=== PATIENT | male | born 1965 | race Caucasian/White ===

== ENCOUNTER 2016-06-20 08:11 | Emergency (ER) | payer OTHER ==
[~2016-06-20] VITALS: Ht 160 cm; Wt 60.0 kg
[~2016-06-20 08:11] MED LIST: ALBU18HF INHALATION; ASPI81TA3 PO; CIPR500T4 PO; COU2 PO; DICY20TA59 PO; DOCU100C26 PO; ENOX100D2 SC; GABA-526 PO; GEMF600T60 PO; HYDR-3498 PO; HYDR-902 PO; HYDR-906 PO; LEVO175T6 PO; NAPR-688 PO; NICO-524 TRANSDERM; OMEP40CA6 PO; OSLT75C PO
[2016-06-20 08:14] VITALS: Ht 160 cm; Wt 60.0 kg
[2016-06-20 09:16] LABS: INR 1.74; PROTIME 20.5 Sec (12.2-14.2); PT RATIO 1.6
[2016-06-20 09:17] LABS: PARTIAL THROMBOPLASTIN TIME 44.7 Sec (25.0-35.0)
--- NOTE | 2016-06-20 09:21 | RADRPT ---
PROCEDURE: US DVT. CLINICAL INDICATION: History of DVT TECHNIQUE: Multiple longitudinal and transverse images of the right lower extremity veins were obt ained with sher scale and color Doppler imaging. 2D grayscale measurements with compression, color Doppler flow, and augmentation was performed. COMPARISON: 07/13/2015 FINDINGS: Color and duplex Doppler ultrasound demonstrates nonocclusive deep venous thrombosis in the distal f emoral vein and occlusive deep venous thrombosis in the popliteal vein. There is no evidence of thr ombus in the common femoral vein. The deep venous thrombosis appears acute and increased compared t o previous study. IMPRESSION: Positive for acute deep venous thrombosis in right femoral and popliteal veins. A call report was joellen campo to <<Referring Physicians Name>> on <<DATETIME>>. RPTAT: HJES .Robert Cobian MD, MD Date Time Electronically viewed and signed by .Robert Cobian MD, MD on 06/20/2016 09:21 .S/
[2016-06-20] MEDS ORDERED: WARFARIN 2.5 MG TAB PO ONE (10:00)
[2016-06-20 10:21] VITALS: BP 102/60; PULSE 82; RESP 22; TEMP 98
--- NOTE | 2016-06-21 14:48 | ERD ---
ER Documentation Chief Complaint Date/Time DATE: 06/21/16 TIME: 14:46 Chief Complaint right lower leg pain hx dvt, wants ultrasound of leg HPI 50-year-old man recently released from residential here requesting ultrasound because he has a recent history of DVT to the right lower extremity. Patient states he uses warfarin as prescribed daily and just wants to be reevaluated. He denies any new symptoms, denies new or increased swelling, no chest pain or shortness of breath, no fevers or chills, no skin discoloration. ROS All systems reviewed and are negative except as per history of present illness. Medications Home Meds Active Scripts Ciprofloxacin Hcl* (Ciprofloxacin Hcl*) 500 Mg Tablet, 500 MG PO BID for 7 Days , TAB Prov:KELLEN PEÑA 04/08/16 Ciprofloxacin Hcl* (Ciprofloxacin Hcl*) 500 Mg Tablet, 500 MG PO BID, #14 TAB Prov:KELLEN PEÑA 04/08/16 Hydrocodone/Acetaminophen ([place] 10-325 Tablet) 1 Each Tablet, 1 EACH PO EVERY 6 HOURS, #30 TAB Prov:GREG CELESTE DO 12/12/15 Dicyclomine Hcl* (Bentyl*) 20 Mg Tablet, 20 MG PO QID, #30 TAB Prov:GREG CELESTE DO 12/12/15 Warfarin Sod (Coumadin) 2 Mg Tab, 5 MG PO DAILY@17, #20 TAB Prov:JIL THOMSON MD 07/13/15 Nicotine* (Nicoderm* Patch) 1 Patch Patch, 1 PATCH TRANSDERM DAILY, #10 PATCH 3 Refills Prov:JIL THOMSON MD 07/13/15 Enoxaparin Sodium (Enoxaparin Sodium) 100 Mg/Ml Soln, 90 MG SC Q12, #10 1 Refill Prov:JIL THOMSON MD 07/13/15 Hydrocodone Bit-Acetaminophen ([place]) 5-325 Mg Tablet, 1 TAB PO Q4H Y for PAIN, #14 TAB Prov:JOE SILVA DO 06/19/15 Naproxen* (Naproxen*) 500 Mg Tablet, 500 MG PO BID Y for PAIN, #20 TAB Prov:JOE SILVA DO 06/19/15 Omeprazole* (Omeprazole*) 40 Mg Capsule.dr, 40 MG PO DAILY, #30 CAP Prov:DEVON JOYNERFlex ETL ANALYST DEVELOPER 05/18/15 Hydrocodone Bit-Acetaminophen* ([place]*) 5-325 Mg Tab, 1 TAB PO Q6 Y for PAIN, # 15 TAB Prov:DEVON JOYNERFlex ETL ANALYST DEVELOPER 05/18/15 Oseltamivir Phosphate* (Tamiflu*) 75 Mg Capsule, 75 MG PO BID for 5 Days, CAP Prov:DEVON JOYNERFlex ETL ANALYST DEVELOPER 05/18/15 Reported Medications Albuterol Sulfate* (Ventolin HFA*) 18 Gm Hfa.aer.ad, 2 PUFF INHALATION Q6H, #1 INHALER 07/13/15 Aspirin (Aspirin) 81 Mg Chew, 81 MG PO DAILY, TAB.CHEW 07/13/15 Gabapentin* (Gabapentin*) 600 Mg Tablet, 600 MG PO TID, #90 TAB 07/13/15 Levothyroxine Sodium* (Levothyroxine Sodium*) 175 Mcg Tablet, 175 MCG PO DAILY, #30 TAB 07/13/15 Docusate Sodium* (Doc-Q-Lace*) 100 Mg Capsule, 100 MG PO BID Y for CONSTIPATION , CAP 07/13/15 Gemfibrozil* (Gemfibrozil*) 600 Mg Tablet, 600 MG PO BID, TAB 07/13/15 Allergies Allergies: Coded Allergies: No Known Allergy (Unverified , 12/11/15) PMhx/Soc No chronic pain, hypothyroidism, DVT, asthma History of Surgery: Yes (thyroidectomy 1993,tracheostomy, g-tube, cholecystectomy) Anesthesia Reaction: No Hx Neurological Disorder: Yes (spinal cord injury t1) Hx Respiratory Disorders: Yes (asthma) Hx Cardiac Disorders: Yes (HTN) Hx Psychiatric Problems: Yes (depression) Hx Miscellaneous Medical Probl: Yes (stomach ca, ) Hx Alcohol Use: Yes (beer, rum, 07/12/15) Hx Substance Use: No Hx Tobacco Use: Yes (one pack a day) Smoking Status: Former smoker FmHx Family History: No diabetes Physical Exam Vitals Vital Signs Date Time Temp Pulse Resp B/P Pulse Ox O2 Delivery O2 Flow Rate FiO2 06/20/16 10:21 98.0 82 22 102/60 100 06/20/16 08:14 98.3 85 22 109/63 100 Physical Exam GENERAL: Well-developed, well-nourished, well-hydrated, in no apparent distress , looks nontoxic in appearance HEENT: Moist mucous membranes, pink conjunctiva, no cervical spine tenderness or step-off deformities, no goiter, no jaundice or icterus, extraocular movements intact without pain. No submandibular induration, and no pharyngeal erythema NEURO: Alert and oriented 3, cranial nerves II through XII intact bilaterally, pupils equal round reactive to light, no focal deficits or facial asymmetry, sensation intact distally Strength 5/5 in upper and lower extremities bilaterally CARDIAC: Regular rate and rhythm, no murmurs rubs or gallops LUNGS: Clear bilaterally no wheezing crackles or stridor ABDOMEN: Soft nontender, no guarding, no rigidity, no rebound, no psoas sign no obturator sign. Normoactive bowel sounds SKIN: Warm and dry to touch, no abrasions, contusions, or hematomas, no lacerations, no ecchymosis, no target lesions, and without ulcers EXTREMITIES: No clubbing cyanosis or edema, calves are bilaterally symmetrical, no Homans sign, no popliteal cord sign. Distal pulses equal and bilateral PSYCH: Normal affect without agitation or irritability Results 24 hrs Laboratory Tests Test 06/20/16 08:47 Activated Partial Thromboplast Time 44.7Sec INR International Normalized Ratio 1.74 Prothrombin Time 20.5Sec Prothrombin Time Ratio 1.6 Current Medications Medications (Trade) Dose Ordered Sig/Alejandro Route PRN Reason Start Time Stop Time Status Last Admin Dose Admin Warfarin Sodium (Coumadin) 2.5 mg ONCE ONCE PO 06/20/16 10:00 06/20/16 10:01 DC 06/20/16 09:57 Procedures/MDM Color Doppler ultrasound of the right lower extremity revealed a DVT consistent with his history. INR was subtherapeutic at 1.7. I ordered 1 more dose of warfarin which he ingested here. I told him to follow-up with his PMD for continued INR checks and a prescription for an increased dose of warfarin. Patient feels much better at this time, and vital signs are normal, symptoms have improved. I did give strict instructions to return to the ED if symptoms continue or worsen, patient will otherwise follow-up with primary care physician. Patient understood instructions and agreed to plan. Departure Diagnosis: Primary Impression: DVT (deep venous thrombosis) DVT location: lower extremity Affected thrombotic vein of extremity: popliteal Laterality: right Chronicity: acute Qualified Code: I82.431 - Acute deep vein thrombosis (DVT) of popliteal vein of right lower extremity Condition: Good Patient Instructions: Deep Vein Thrombosis Referrals: ARMANDO PEGUERO MD, DAVID MD Jun 21, 2016 14:48
== END 2016-06-20 10:20 | disposition home or self-care (01) ==
LOC: E/R 08:11
DX: I82.431 Acute embolism and thrombosis of right popliteal vein (principal); E03.9 Hypothyroidism, unspecified; J45.909 Unspecified asthma, uncomplicated; I10 Essential (primary) hypertension; Z79.01 Long term (current) use of anticoagulants; Z79.82 Long term (current) use of aspirin; Z85.028 Personal history of other malignant neoplasm of stomach; Z87.891 Personal history of nicotine dependence
CPT/HCPCS: 85610; 85730; 93971

== ENCOUNTER 2016-07-07 15:40 | Emergency (ER) | payer OTHER ==
[~2016-07-07] VITALS: Wt 52.5 kg
[2016-07-07 20:34] VITALS: BP 109/76; PULSE 62; RESP 18
--- NOTE | 2016-07-07 21:25 | ERD ---
ER Documentation Chief Complaint Date/Time DATE: 07/07/16 TIME: 21:19 Chief Complaint g tube feeding malfunction since this morning. no trauma. HPI 50-year-old male with a history of gastric cancer status post gastrectomy with feeding tube placement at the beginning of this month presenting with malfunction of his feeding tube. He states that he woke up in the middle of the night and the port on his feeding tube had fallen off and it was leaking. He reconnected the port and tried to flush it and it would not flush. He disconnected the port and try to flush directly into the tube and it would not flush. He denies any abdominal pain, fevers, chills. ROS All systems reviewed and are negative except as per history of present illness. Medications Home Meds Active Scripts Ciprofloxacin Hcl* (Ciprofloxacin Hcl*) 500 Mg Tablet, 500 MG PO BID for 7 Days , TAB Prov:KELLEN PEÑA 04/08/16 Ciprofloxacin Hcl* (Ciprofloxacin Hcl*) 500 Mg Tablet, 500 MG PO BID, #14 TAB Prov:KELLEN PEÑA 04/08/16 Hydrocodone/Acetaminophen ([place] 10-325 Tablet) 1 Each Tablet, 1 EACH PO EVERY 6 HOURS, #30 TAB Prov:GREG CELESTE DO 12/12/15 Dicyclomine Hcl* (Bentyl*) 20 Mg Tablet, 20 MG PO QID, #30 TAB Prov:GREG CELESTE DO 12/12/15 Warfarin Sod (Coumadin) 2 Mg Tab, 5 MG PO DAILY@17, #20 TAB Prov:JIL THOMSON MD 07/13/15 Nicotine* (Nicoderm* Patch) 1 Patch Patch, 1 PATCH TRANSDERM DAILY, #10 PATCH 3 Refills Prov:JIL THOMSON MD 07/13/15 Enoxaparin Sodium (Enoxaparin Sodium) 100 Mg/Ml Soln, 90 MG SC Q12, #10 1 Refill Prov:JIL THOMSON MD 07/13/15 Hydrocodone Bit-Acetaminophen ([place]) 5-325 Mg Tablet, 1 TAB PO Q4H Y for PAIN, #14 TAB Prov:JOE SILVA DO 06/19/15 Naproxen* (Naproxen*) 500 Mg Tablet, 500 MG PO BID Y for PAIN, #20 TAB Prov:JOE SILVA DO 06/19/15 Omeprazole* (Omeprazole*) 40 Mg Capsule.dr, 40 MG PO DAILY, #30 CAP Prov:DEVON JOYNERFlex PRODUCTION TEAM ADVISOR 05/18/15 Hydrocodone Bit-Acetaminophen* ([place]*) 5-325 Mg Tab, 1 TAB PO Q6 Y for PAIN, # 15 TAB Prov:RIGOBERTO JOYNERMARKUS Kevin PRODUCTION TEAM ADVISOR 05/18/15 Oseltamivir Phosphate* (Tamiflu*) 75 Mg Capsule, 75 MG PO BID for 5 Days, CAP Prov:DEVON JOYNERFlex PRODUCTION TEAM ADVISOR 05/18/15 Reported Medications Albuterol Sulfate* (Ventolin HFA*) 18 Gm Hfa.aer.ad, 2 PUFF INHALATION Q6H, #1 INHALER 07/13/15 Aspirin (Aspirin) 81 Mg Chew, 81 MG PO DAILY, TAB.CHEW 07/13/15 Gabapentin* (Gabapentin*) 600 Mg Tablet, 600 MG PO TID, #90 TAB 07/13/15 Levothyroxine Sodium* (Levothyroxine Sodium*) 175 Mcg Tablet, 175 MCG PO DAILY, #30 TAB 07/13/15 Docusate Sodium* (Doc-Q-Lace*) 100 Mg Capsule, 100 MG PO BID Y for CONSTIPATION , CAP 07/13/15 Gemfibrozil* (Gemfibrozil*) 600 Mg Tablet, 600 MG PO BID, TAB 07/13/15 Allergies Allergies: Coded Allergies: No Known Allergy (Unverified , 12/11/15) PMhx/Soc History of Surgery: Yes (thyroidectomy 1993,tracheostomy, g-tube, cholecystectomy) Anesthesia Reaction: No Hx Neurological Disorder: Yes (spinal cord injury t1) Hx Respiratory Disorders: Yes (asthma) Hx Cardiac Disorders: Yes (HTN) Hx Psychiatric Problems: Yes (depression) Hx Miscellaneous Medical Probl: Yes (stomach ca, ) Hx Alcohol Use: Yes (beer, rum, 07/12/15) Hx Substance Use: No Hx Tobacco Use: No (one pack a day) Smoking Status: Former smoker FmHx Family History: No diabetes Physical Exam Vitals Vital Signs Date Time Temp Pulse Resp B/P Pulse Ox O2 Delivery O2 Flow Rate FiO2 07/07/16 20:34 62 18 109/76 97 Room Air 07/07/16 19:30 75 20 111/82 100 Room Air 07/07/16 15:49 98.2 88 21 90/54 100 Physical Exam Const: Chronically ill-appearing, nontoxic, no distress Head: Atraumatic Eyes: Normal Conjunctiva ENT: Normal External Ears, Nose and Mouth. Neck: Full range of motion..~ No meningismus. Tracheostomy present Resp: Clear to auscultation bilaterally Cardio: Regular rate and rhythm, no murmurs Abd: Soft, non tender, non distended. Well-healed surgical scar. Left lower quadrant with feeding tube in place. Normal bowel sounds Skin: No petechiae or rashes Back: No midline or flank tenderness Ext: No cyanosis, or edema Neur: Awake and alert Psych: Normal Mood and Affect Procedures/MDM Patient is presenting with malfunction of his feeding tube. It seems like his feeding tube is in the right place it just seems to be clogged. We tried to flush it and we were unsuccessful. After milking the tube, we tried to flush it again it would flush normally. Repeat abdominal exam was unremarkable the patient was discharged with return precautions. Departure Diagnosis: Primary Impression: Malfunction of gastrostomy tube Condition: Stable Patient Instructions: Flushing Your Feeding Tube Additional Instructions: Return to the ER for any other problems with your tube. MOHAN TAN MD Jul 07, 2016 21:25
== END 2016-07-07 20:34 | disposition home or self-care (01) ==
LOC: E/R 15:40
DX: K94.23 Gastrostomy malfunction (principal); I10 Essential (primary) hypertension; J45.909 Unspecified asthma, uncomplicated; Z79.01 Long term (current) use of anticoagulants; Z79.82 Long term (current) use of aspirin; Z85.028 Personal history of other malignant neoplasm of stomach; Z87.891 Personal history of nicotine dependence
CPT/HCPCS: 99282

== ENCOUNTER 2016-09-11 20:46 | Emergency (ER) | payer OTHER ==
[~2016-09-11] VITALS: Ht 167.6 cm; Wt 47.5 kg
[2016-09-11 20:52] VITALS: Ht 167.6 cm; Wt 47.5 kg
== END 2016-09-11 21:31 | disposition left against medical advice (07) ==
LOC: E/R 20:46
DX: Z53.21 Procedure and treatment not carried out due to patient leaving prior to being seen by health care provider (principal)

== ENCOUNTER 2016-10-18 20:00 | Inpatient (IN) | payer OTHER ==
[~2016-10-18] VITALS: Ht 167.6 cm; Wt 47.8 kg
[2016-10-18 22:15] LABS: ADD SCAN DIFF NO
[2016-10-18 22:18] LABS: BASOPHILS % 0.1 % (0.0-2.0); EOSINOPHILS % 0.5 % (0.0-7.0); HEMATOCRIT 30.3 % (42.0-52.0); HEMOGLOBIN 10.3 g/dl (14.0-18.0); LYMPHOCYTES # 1.2 10^3/ul (0.8-2.9); LYMPHOCYTES % 15.9 % (15.0-51.0); MEAN CORPUSCULAR VOLUME 88.3 fl (82.0-101.0); MEAN PLATELET VOLUME 9.9 fl (7.4-10.4); MONOCYTE # 0.4 10^3/ul (0.3-0.9); MONOCYTES % 4.8 % (0.0-11.0); NEUTROPHIL # 5.8 10^3/ul (1.6-7.5); NEUTROPHILS % 78.4 % (39.0-77.0); PLATELET COUNT 153 10^3/UL (140-415); RED BLOOD COUNT 3.43 10^6/ul (4.70-6.10); RED CELL DISTRIBUTION WIDTH 14.9 % (11.5-14.5); WHITE BLOOD COUNT 7.4 10^3/ul (4.8-10.8)
[2016-10-18 22:27] LABS: INR 1.88; PROTIME 21.8 Sec (12.2-14.2); PT RATIO 1.7
[2016-10-18 22:29] LABS: PARTIAL THROMBOPLASTIN TIME 64.9 Sec (25.0-35.0)
[2016-10-18 22:48] LABS: ALANINE AMINOTRANSFERASE 56 IU/L (13-69); ALKALINE PHOSPHATASE 50 IU/L (42-121); ANION GAP 9 (8-16); ASPARTATE AMINO TRANSFERASE 29 IU/L (15-46); BILIRUBIN,INDIRECT 0.2 mg/dl (0-1.1); BILIRUBIN,TOTAL 0.2 mg/dl (0.2-1.3); BLOOD UREA NITROGEN 18 mg/dl (7-20); CALCIUM 8.6 mg/dl (8.4-10.2); CARBON DIOXIDE 28 mmol/L (21-31); CHLORIDE 103 mmol/L (97-110); CREATININE 0.64 mg/dl (0.61-1.24); GLUCOSE 91 mg/dl (70-220); POTASSIUM 4.1 mmol/L (3.5-5.1); SODIUM 136 mmol/L (135-144); TOTAL PROTEIN 6.5 g/dl (6.1-8.1)
[2016-10-18 23:00] LABS: TROPONIN-I < 0.012 ng/ml (0.00-0.12)
[2016-10-18] MEDS ORDERED: CHOL400T10 PO (23:13)
[2016-10-18] MEDS ORDERED: CYAN500T46 PO (23:13)
[2016-10-18] MEDS ORDERED: CA C1TAB66 PO (23:13)
[2016-10-18] MEDS ORDERED: SENN-53 PO (23:14)
--- NOTE | 2016-10-18 23:14 | RADRPT ---
PROCEDURE: XR Chest. CLINICAL INDICATION: Possible sepsis. TECHNIQUE: Single frontal view of the chest. COMPARISON: 04/08/2016. FINDINGS: Tracheostomy tube at midline. Right central venous line in place with tip in the superior vena cava . The cardiomediastinal silhouette is within normal limits. Hyperinflated lungs with changes of centro lobular emphysema. The lungs otherwise clear. No signs of pleural fluid or pneumothorax are seen. T he osseous structures and soft tissues are unremarkable. IMPRESSION: No evidence for active cardiopulmonary disease. RPTAT: [facility]U Physician Lenore Date Time Electronically viewed and signed by Physician Lenore on 10/18/2016 23:13 RS/
--- NOTE | 2016-10-18 23:34 | RADRPT ---
PROCEDURE: CT abdomen and pelvis without intravenous contrast. CLINICAL INDICATION: Possible sepsis. TECHNIQUE: CT of the abdomen/pelvis was performed utilizing axial images with reconstructions in s agittal and coronal planes. The administered radiation dose is CTDI 6.8 mGy, DLP 309 mGy-cm. COMPARISON: 04/08/2016 FINDINGS: Visualized Chest: Some patchy airspace opacities are seen within the visualized left lower lobe. Th ere is a moderate-sized hiatal hernia. Abdomen: The examination is limited by a paucity of intra-abdominal fat contrast as well as a lack of oral an d intravenous contrast. The liver, spleen, pancreas, gallbladder,and adrenal glands are unremarkable. The kidneys are without hydronephrosis. No definite urinary calculi are seen. Prior bowel surgery is noted with anastomotic sutures in the left abdomen within some of the colon a nd likely small bowel loops. There is no evidence of bowel obstruction. The appendix is normal. N o intra-abdominal free air is seen. There is no evidence of intra-abdominal adenopathy or free fluid. Vascular calcifications are noted within the aorta and its branches. Pelvis: There is a small amount of pelvic free fluid. The urinary bladder and prostate are unremarkable. Osseous structures: Unremarkable. IMPRESSION: Small amount of pelvic free fluid which is nonspecific but abnormal in a male. Patchy airspace opacities in the visualized left lower lobe suggestive of pneumonia. Moderate size hiatal hernia. RPTAT: HIKT .Kerwin Wilkes MD, Date Time Electronically viewed and signed by .Kerwin Wilkes MD, on 10/18/2016 23:34 .T/
[2016-10-18 23:41] VITALS: TEMP 99.8
[2016-10-19] MEDS ORDERED: ACETAMINOPHEN 500 MG TAB ONE (00:36)
[2016-10-19] MEDS ORDERED: VANCOMYCIN 1 GM (PMX) 250 ML IVPB STA (01:26)
[2016-10-19] MEDS ORDERED: CEFEPIME 1GM/50 ML (PMX) 50 ML IVPB STA (01:26)
--- NOTE | 2016-10-19 01:55 | ERA ---
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 He has a history of stomach cancer with last chemotherapy 2 months ago. Denies any fevers or chills. Denies any nausea or vomiting. Denies any other current complaints. Denies any cough or runny nose. ROS All systems reviewed and are negative except as per history of present illness. Medications Home Meds Active Scripts Hydrocodone/Acetaminophen ([place] 10-325 Tablet) 1 Each Tablet, 1 EACH PO EVERY 6 HOURS, #30 TAB Prov:GREG CELESTE DO 12/12/15 Warfarin Sod (Coumadin) 2 Mg Tab, 5 MG PO DAILY@17, #20 TAB Prov:JIL THOMSON MD 07/13/15 Reported Medications Sennosides* (Senna Lax*) 8.6 Mg Tablet, 1 TAB PO DAILY, TAB 10/18/16 Ca Carb & Gluc/Mag Ox & Gluc (CALCIUM MAGNESIUM CAPLET) 1 Each Tablet, 1 EACH PO , TAB 10/18/16 Cholecalciferol* (Vitamin D*) 400 Unit Tablet, 800 UNIT PO DAILY, TAB 10/18/16 Cyanocobalamin* (Vitamin B12*) 500 Mcg Tab, 1000 MCG PO DAILY, TAB 10/18/16 Albuterol Sulfate* (Ventolin HFA*) 18 Gm Hfa.aer.ad, 2 PUFF INHALATION Q6H, #1 INHALER 07/13/15 Gabapentin* (Gabapentin*) 600 Mg Tablet, 600 MG PO TID, #90 TAB 07/13/15 Levothyroxine Sodium* (Levothyroxine Sodium*) 175 Mcg Tablet, 175 MCG PO DAILY, #30 TAB 07/13/15 Discontinued Reported Medications Aspirin (Aspirin) 81 Mg Chew, 81 MG PO DAILY, TAB.CHEW 07/13/15 Docusate Sodium* (Doc-Q-Lace*) 100 Mg Capsule, 100 MG PO BID Y for CONSTIPATION , CAP 07/13/15 Gemfibrozil* (Gemfibrozil*) 600 Mg Tablet, 600 MG PO BID, TAB 07/13/15 Discontinued Scripts Ciprofloxacin Hcl* (Ciprofloxacin Hcl*) 500 Mg Tablet, 500 MG PO BID for 7 Days , TAB Prov:KELLEN PEÑA 04/08/16 Ciprofloxacin Hcl* (Ciprofloxacin Hcl*) 500 Mg Tablet, 500 MG PO BID, #14 TAB Prov:KELLEN PEÑA 04/08/16 Dicyclomine Hcl* (Bentyl*) 20 Mg Tablet, 20 MG PO QID, #30 TAB Prov:GREG CELESTE DO 12/12/15 Nicotine* (Nicoderm* Patch) 1 Patch Patch, 1 PATCH TRANSDERM DAILY, #10 PATCH 3 Refills Prov:JIL THOMSON MD 07/13/15 Enoxaparin Sodium (Enoxaparin Sodium) 100 Mg/Ml Soln, 90 MG SC Q12, #10 1 Refill Prov:JIL THOMSON MD 07/13/15 Hydrocodone Bit-Acetaminophen ([place]) 5-325 Mg Tablet, 1 TAB PO Q4H Y for PAIN, #14 TAB Prov:JOE SILVA DO 06/19/15 Naproxen* (Naproxen*) 500 Mg Tablet, 500 MG PO BID Y for PAIN, #20 TAB Prov:JOE SILVA DO 06/19/15 Omeprazole* (Omeprazole*) 40 Mg Capsule.dr, 40 MG PO DAILY, #30 CAP Prov:DEVON JOYNER NP 05/18/15 Hydrocodone Bit-Acetaminophen* ([place]*) 5-325 Mg Tab, 1 TAB PO Q6 Y for PAIN, # 15 TAB Prov:DEVON JOYNER NP 05/18/15 Oseltamivir Phosphate* (Tamiflu*) 75 Mg Capsule, 75 MG PO BID for 5 Days, CAP Prov:DEVON JOYNER NP 05/18/15 Allergies Allergies: Coded Allergies: No Known Allergy (Unverified , 10/18/16) PMhx/Soc History of Surgery: Yes (tracheostomy, stomach surgery, gt removed) Anesthesia Reaction: No Hx Neurological Disorder: Yes (spinal cord injury t1) Hx Respiratory Disorders: Yes (asthma) Hx Cardiac Disorders: Yes (HTN) Hx Psychiatric Problems: Yes (depression) Hx Miscellaneous Medical Probl: Yes (stomach/thyroid ca, spinal cord injury t1 , dvt) Hx Alcohol Use: No Hx Substance Use: No Hx Tobacco Use: No (former) Smoking Status: Former smoker Physical Exam Vitals Vital Signs Date Time Temp Pulse Resp B/P Pulse Ox O2 Delivery O2 Flow Rate FiO2 10/18/16 23:41 99.8 71 16 103/70 98 Room Air 10/18/16 21:25 Nasal Cannula 10/18/16 20:32 99.6 98 18 128/58 98 Physical Exam Const: [] Head: Atraumatic Eyes: Normal Conjunctiva ENT: Normal External Ears, Nose and Mouth. Neck: Full range of motion..~ No meningismus. Resp: Clear to auscultation bilaterally Cardio: Regular rate and rhythm, no murmurs Abd: Soft, non tender, non distended. Normal bowel sounds Skin: No petechiae or rashes Back: No midline or flank tenderness Ext: No cyanosis, or edema Neur: Awake and alert Psych: Normal Mood and Affect Result Diagram: 10/18/16212410/18/162124 Results 24 hrs Laboratory Tests Test 10/18/16 21:25 10/19/16 00:08 White Blood Count 7.410^3/ul Red Blood Count 3.4310^6/ul Hemoglobin 10.3g/dl Hematocrit 30.3% Mean Corpuscular Volume 88.3fl Mean Corpuscular Hemoglobin 30.0pg Mean Corpuscular Hemoglobin Concent 34.0g/dl Red Cell Distribution Width 14.9% Platelet Count 81523^3/UL Mean Platelet Volume 9.9fl Neutrophils % 78.4% Lymphocytes % 15.9% Monocytes % 4.8% Eosinophils % 0.5% Basophils % 0.1% Nucleated Red Blood Cells % 0.0/100WBC Neutrophils # 5.810^3/ul Lymphocytes # 1.210^3/ul Monocytes # 0.410^3/ul Eosinophils # 0.010^3/ul Basophils # 0.010^3/ul Nucleated Red Blood Cells # 0.010^3/ul Prothrombin Time 21.8Sec Prothrombin Time Ratio 1.7 INR International Normalized Ratio 1.88 Activated Partial Thromboplast Time 64.9Sec Sodium Level 136mmol/L Potassium Level 4.1mmol/L Chloride Level 103mmol/L Carbon Dioxide Level 28mmol/L Anion Gap 9 Blood Urea Nitrogen 18mg/dl Creatinine 0.64mg/dl Glucose Level 91mg/dl Lactic Acid Level 1.4mmol/L < 0.5mmol/L Calcium Level 8.6mg/dl Total Bilirubin 0.2mg/dl Direct Bilirubin 0.00mg/dl Indirect Bilirubin 0.2mg/dl Aspartate Amino Transf (AST/SGOT) 29IU/L Alanine Aminotransferase (ALT/SGPT) 56IU/L Alkaline Phosphatase 50IU/L Troponin I < 0.012ng/ml Total Protein 6.5g/dl Albumin 4.0g/dl Globulin 2.50g/dl Albumin/Globulin Ratio 1.60 Current Medications Medications (Trade) Dose Ordered Sig/Alejandro Route PRN Reason Start Time Stop Time Status Last Admin Dose Admin Acetaminophen 500 mg 500 mg STK-MED ONCE .ROUTE 10/19/16 00:36 10/19/16 00:37 DC Cefepime HCl 50 ml @ 100 mls/hr ONCE STAT IVPB 10/19/16 01:26 10/19/16 01:55 Vancomycin HCl (Vancocin) 250 ml @ 125 mls/hr ONCE STAT IVPB 10/19/16 01:26 10/19/16 03:25 Procedures/MDM EKG: Rate/Rhythm: Normal Sinus Rhythm QRS, ST, T-waves: No changes consistent w/ acute ischemia Impression: No evidence of ischemia or arrhythmia Chest X-ray 1V Interpreted by me: Soft Tissue: No acute abnormalities Bones: No acute abnormalities Mediastinum/Cardiac Silhouette/Lungs: No acute abnormalities CT of the abdomen pelvis does show basilar pneumonia Blood cultures pending Medical decision-making: This 51 abdomen history of gastric cancer status post chemo with pneumonia. Started on broad-spectrum antibiotics post blood cultures. Patient will be admitted to hospitalist Departure Diagnosis: Primary Impression: Fever Qualified Code: R50.9 - Fever, unspecified fever cause Additional Impression: Pneumonia Qualified Code: J18.1 - Pneumonia of lower lobe due to infectious organism, unspecified laterality Condition: Serious SEAN BERNABE Oct 19, 2016 01:55
[2016-10-19 03:26] VITALS: BP 101/70; RESP 18
[2016-10-19 03:29] VITALS: Ht 167.6 cm; Wt 47.8 kg
[2016-10-19] MEDS ORDERED: ONDANSETRON 4 MG INJ IV PRN (03:30)
[2016-10-19] MEDS ORDERED: ZOLPIDEM 5 MG TAB PO PRN (03:30)
[2016-10-19] MEDS ORDERED: NACL 0.9% 3 ML SYG IV SCH (03:30)
[2016-10-19] MEDS ORDERED: morphine 2 MG INJ IV PRN (03:30)
[2016-10-19] MEDS: PANTOPRAZOLE 40 MG INJ IV SCH (05:29)
[2016-10-19] MEDS: SOD CHLORIDE 0.9% 1,000 ML IV SCH ×3 (05:43→20:40)
--- NOTE | 2016-10-19 06:41 | HP ---
Date/Time of Note Date/Time of Note DATE: 10/19/16 TIME: 06:34 Assessment/Plan VTE Prophylaxis VTE Prophylaxis Intervention: SCD's Lines/Catheters IV [facility]ter [facility] (from [facility]): yenni cath Assessment/Plan Chief Complaint/Hosp Course This is a 51-year-old male being admitted to the [facility] floor for: #1 community-acquired pneumonia: Patient denies any antibiotic use within the last 90 days and denies any hospitalizations in the last 90 days. She did receive Vanco and cefepime in the ED. Will start patient on Levaquin 750 mg IV daily. Tylenol for fevers. #2 Anemia: Likely secondary to anemia of chronic disease. We will continue to monitor and consider or iron studies the right now the MCV is within normal values. #3 gastric cancer: Patient last had chemotherapy approximately 2 months ago, follow-up outpatient hematology #4 thyroid cancer: Follow-up outpatient hematology #5 Hypothyroidism: Secondary to #4. Check TSH continue home levothyroxine dose. #6 right lower extremity DVT: Will check INR daily and provide Coumadin dosing as indicated while watching out for possible supratherapeutic levels being that he is currently going to be on antibiotics. #7 DVT and GI prophylaxis: SCDs, Protonix Further treatment strategy as per the clinical course Problems: HPI/ROS Admit Date/Time Admit Date/Time Oct 19, 2016 at 01:28 Hx of Present Illness Chief complaint: Fevers and feeling weak This is a 51-year-old male comes in with fever for 1 hour. He has a history of stomach cancer with last chemotherapy 2 months ago. Denies any fevers or chills. Denies any nausea or vomiting. He does state that he felt weak earlier. He had gone to the pool filled out for his kids but did not swim. After that he states that he just felt really tired and was sleeping the whole time. Denies any cough. Allergies: NKDA Medications: See SOFIA RUBI Const: As per HPI Eyes : No pain discharge or redness or change in visual acuity ENT: No pain, sore throat, congestion, congestion, dysphagia or discharge Respiratory: No shortness of breath, cough, sputum, wheezing, or pleuritic pain Cardiovascular: No chest pain, palpitation, PND, or edema GI : no change in appetite, abdominal pain, nausea, vomiting, diarrhea, constipation, or change in the color his stool Genitourinary: No dysuria, hematuria, flank pain , discharge or CVA tenderness Musculoskeletal: No joint pain, back pain, neck pain, restricted range of motion in neck or joints Skin: No rash, bruising or hives Neuro: No headache, dizziness, syncope, seizure, focal weakness Endocrine: No polyuria, polydipsia, temperature intolerance Psych: No hallucination, depression, anxiety or suicidal ideation PMH/Family/Social Past Medical History Gastric cancer, thyroid cancer, right lower extremity DVT Past Surgical History Gastrectomy Family History Significant Family History: cancer (Pancreatic CA: That) Social History Alcohol Use: none Smoking Status: Former smoker Drug Use: none Exam/Review of Systems Vital Signs Vitals Vital Signs Date Time Temp Pulse Resp B/P Pulse Ox O2 Delivery O2 Flow Rate FiO2 10/19/16 03:26 98.0 75 18 101/70 99 10/19/16 02:43 Room Air Intake and Output 10/18/16 10/18/16 10/19/16 14:59 22:59 06:59 Intake Total 300 ml Balance 300 ml Exam Exam General: Patient is well-developed male lying in bed comfortably in no acute distress. HEENT: Atraumatic, normocephalic. The pupils are equal, round and reactive. Extraocular motor are intact Neck: Supple with full range of motion. No rigidity or meningismus Chest: Nontender Lungs: Decreased breath sounds at the left lower lung lopez, mild coarse breath sounds left lower lung field. Heart: Normal S1-S2, Regular rhythm and rate. No overt murmurs appreciated Abdomen: Soft , nontender, nondistended , bowel sounds are present. No guarding no rebound tenderness , No masses or organomegaly. No costovertebral temporal angle mass Extremities: Normal to inspection, no edema no cyanosis Neurologic: Normal mental status, speech normal, cranial nerves II through XII are intact, motor and sensory are intact, no focal weakness Additional Comments PROCEDURE: CT abdomen and pelvis without intravenous contrast. CLINICAL INDICATION: Possible sepsis. TECHNIQUE: CT of the abdomen/pelvis was performed utilizing axial images with reconstructions in sagittal and coronal planes. The administered radiation dose is CTDI 6.8 mGy, DLP 309 mGy-cm. COMPARISON: 04/08/2016 FINDINGS: Visualized Chest: Some patchy airspace opacities are seen within the visualized left lower lobe. There is a moderate-sized hiatal hernia. Abdomen: The examination is limited by a paucity of intra-abdominal fat contrast as well as a lack of oral and intravenous contrast. The liver, spleen, pancreas, gallbladder,and adrenal glands are unremarkable. The kidneys are without hydronephrosis. No definite urinary calculi are seen. Prior bowel surgery is noted with anastomotic sutures in the left abdomen within some of the colon and likely small bowel loops. There is no evidence of bowel obstruction. The appendix is normal. No intra-abdominal free air is seen. There is no evidence of intra-abdominal adenopathy or free fluid. Vascular calcifications are noted within the aorta and its branches. Pelvis: There is a small amount of pelvic free fluid. The urinary bladder and prostate are unremarkable. Osseous structures: Unremarkable. IMPRESSION: Small amount of pelvic free fluid which is nonspecific but abnormal in a male. Patchy airspace opacities in the visualized left lower lobe suggestive of pneumonia. Moderate size hiatal hernia. RPTAT: HIKT .Kerwin Wilkes MD, MD Date Time Electronically viewed and signed by .Kerwin Wilkes MD, MD on 10/18/2016 23:34 PROCEDURE: XR Chest. CLINICAL INDICATION: Possible sepsis. TECHNIQUE: Single frontal view of the chest. COMPARISON: 04/08/2016. FINDINGS: Tracheostomy tube at midline. Right central venous line in place with tip in the superior vena cava. The cardiomediastinal silhouette is within normal limits. Hyperinflated lungs with changes of centrolobular emphysema. The lungs otherwise clear. No signs of pleural fluid or pneumothorax are seen. The osseous structures and soft tissues are unremarkable. IMPRESSION: No evidence for active cardiopulmonary disease. RPTAT: [facility]U Physician Lenore Date Time Electronically viewed and signed by Physician Lenore on 10/18/2016 23:13 Labs Result Diagram: 10/18/16212410/18/162124 Medications Medications Current Medications Ondansetron HCl (Zofran Inj) 4 mg Q6H PRN IV NAUSEA AND/OR VOMITING; Start 02/25 at 03:30 Acetaminophen (Tylenol Tab) 650 mg Q6H PRN PO PAIN LEVEL 1-3 OR FEVER; Start at 03:30 Morphine Sulfate (morphine) 2 mg Q4H PRN IV PAIN LEVEL 7-10; Start 10/19/16 at 03:30 Zolpidem Tartrate (Ambien) 5 mg QHS PRN PO INSOMNIA; Start 10/19/16 at 03:30 Pantoprazole 40 mg 40 mg DAILY@06 IV Last administered on 10/19/16 05:29; Admin Dose 40 MG; Start 10/19/16 at 06:00 Sodium Chloride (NS) 1,000 ml @ 75 mls/hr [id number] IV Last administered on 10/19 05:43; Admin Dose 75 MLS/HR; Start 10/19/16 at 05:30 ESAU PATRICIA Oct 19, 2016 06:40
[2016-10-19] MEDS ORDERED: PROVENTIL HFA 6.7GM INHALER INH SCH (07:00)
[2016-10-19] MEDS: SENNA TAB PO SCH (08:08)
[2016-10-19] MEDS: LEVOTHYROXINE 175 MCG TAB PO SCH (08:08)
[2016-10-19] MEDS: CYANOCOBALAMIN 500 MCG TAB PO SCH (08:08)
[2016-10-19] MEDS: CHOLECALCIFEROL 400 UNITS TAB PO SCH (08:08)
[2016-10-19] MEDS: LEVOFLOXACIN 750MG/D5W (PMX) 150 ML IVPB SCH (08:09)
[2016-10-19] MEDS: GABAPENTIN 300 MG CAP PO SCH ×3 (08:09→20:39)
[2016-10-19 09:04] VITALS: BP 123/80; RESP 16
[2016-10-19] MEDS ORDERED: ALBUTEROL 18 GM INHALER INH SCH (12:00)
[2016-10-19 15:25] VITALS: BP 116/71; RESP 18
[2016-10-19] MEDS ORDERED: ALBUTEROL/IPRATROPIUM (NEB) 3 ML AMP HHN PRN (15:30)
[2016-10-19] MEDS ORDERED: WARFARIN 2 MG TAB PO SCH (17:00)
[2016-10-19] MEDS: WARFARIN 5 MG TAB PO SCH (17:45)
[2016-10-19] MEDS: ALBUTEROL/IPRATROPIUM (NEB) 3 ML AMP HHN SCH (20:10)
[2016-10-19] MEDS: ACETAMINOPHEN 325 MG TAB PO PRN (20:39)
[2016-10-19 20:48] VITALS: BP 125/82; RESP 19
[2016-10-19] MEDS ORDERED: VANCOMYCIN IV PER PHARMACY XX SCH (21:00)
[2016-10-19 21:45] LABS: ADD UMIC NO; UR ASCORBIC ACID NEGATIVE (NEGATIVE); UR BILIRUBIN (Dip) NEGATIVE (NEGATIVE); UR BLOOD (Dip) NEGATIVE (NEGATIVE); UR CLARITY CLEAR (CLEAR); UR COLOR STRAW (YELLOW); UR GLUCOSE (Dip) NEGATIVE (NEGATIVE); UR KETONES (Dip) NEGATIVE (NEGATIVE); UR LEUKOCYTE ESTERASE (Dip) NEGATIVE Leu/ul (NEGATIVE); UR NITRITE (Dip) NEGATIVE (NEGATIVE); UR SPECIFIC GRAVITY (Dip) 1.013 (1.003-1.030); UR TOTAL PROTEIN (Dip) NEGATIVE (NEGATIVE); UR UROBILINOGEN (Dip) NEGATIVE (NEGATIVE)
[2016-10-19] MEDS: PIPER-TAZO 3.375 GM IV (PMX) 100 ML IVPB SCH (22:40)
[2016-10-20] MEDS ORDERED: VANCOMYCIN 1 GM in NS 250 ML IVPB ONE
[2016-10-20] MEDS: PIPER-TAZO 3.375 GM IV (PMX) 100 ML IVPB SCH ×3 (02:00→12:54)
[2016-10-20 02:03] VITALS: BP 128/69; RESP 17
[2016-10-20] MEDS: ACETAMINOPHEN 325 MG TAB PO PRN ×2 (03:04→09:11)
[2016-10-20] MEDS: PANTOPRAZOLE 40 MG INJ IV SCH (04:43)
[2016-10-20] MEDS: LEVOFLOXACIN 750MG/D5W (PMX) 150 ML IVPB SCH (04:43)
[2016-10-20 05:07] LABS: ADD SCAN DIFF NO
[2016-10-20 05:26] LABS: BASOPHILS % 0.1 % (0.0-2.0); EOSINOPHILS % 0.1 % (0.0-7.0); HEMATOCRIT 32.4 % (42.0-52.0); HEMOGLOBIN 10.9 g/dl (14.0-18.0); LYMPHOCYTES # 1.1 10^3/ul (0.8-2.9); LYMPHOCYTES % 13.3 % (15.0-51.0); MEAN CORPUSCULAR HEMOGLOBIN 29.1 pg (29.0-33.0); MEAN CORPUSCULAR HGB CONC 33.6 g/dl (32.0-37.0); MEAN CORPUSCULAR VOLUME 86.4 fl (82.0-101.0); MEAN PLATELET VOLUME 9.7 fl (7.4-10.4); MONOCYTE # 0.4 10^3/ul (0.3-0.9); MONOCYTES % 5.1 % (0.0-11.0); NEUTROPHIL # 6.5 10^3/ul (1.6-7.5); NEUTROPHILS % 80.9 % (39.0-77.0); PLATELET COUNT 139 10^3/UL (140-415); RED BLOOD COUNT 3.75 10^6/ul (4.70-6.10); RED CELL DISTRIBUTION WIDTH 14.5 % (11.5-14.5); WHITE BLOOD COUNT 8.1 10^3/ul (4.8-10.8)
[2016-10-20 05:35] LABS: INR 1.8; PT RATIO 1.6
[2016-10-20 05:42] LABS: ALBUMIN 3.7 g/dl (3.3-4.9); ALBUMIN/GLOBULIN RATIO 1.42; BILIRUBIN,INDIRECT 0.5 mg/dl (0-1.1); BILIRUBIN,TOTAL 0.5 mg/dl (0.2-1.3); CALCIUM 8.7 mg/dl (8.4-10.2); CREATININE 0.67 mg/dl (0.61-1.24); POTASSIUM 3.7 mmol/L (3.5-5.1); TOTAL PROTEIN 6.3 g/dl (6.1-8.1)
[2016-10-20 05:48] LABS: CHOL/HDL RATIO 1.6 RATIO; MAGNESIUM 1.6 mg/dl (1.7-2.5); PHOSPHORUS 4.5 mg/dl (2.5-4.9)
[2016-10-20] MEDS: ALBUTEROL/IPRATROPIUM (NEB) 3 ML AMP HHN SCH ×3 (07:29→19:36)
[2016-10-20] MEDS ORDERED: VANCOMYCIN 750 MG in SOD CHLORIDE 0.9% 150 ML IVPB SCH (08:00)
[2016-10-20] MEDS: CHOLECALCIFEROL 400 UNITS TAB PO SCH (08:04)
[2016-10-20] MEDS: SENNA TAB PO SCH (08:04)
[2016-10-20] MEDS: LEVOTHYROXINE 175 MCG TAB PO SCH (08:04)
[2016-10-20 08:05] VITALS: BP 127/70; RESP 16
[2016-10-20] MEDS: CYANOCOBALAMIN 500 MCG TAB PO SCH (08:05)
[2016-10-20] MEDS: GABAPENTIN 300 MG CAP PO SCH ×3 (08:05→20:23)
[2016-10-20] MEDS ORDERED: VANCOMYCIN 1 GM in NS 250 ML IVPB SCH ×2 (09:00→12:30)
--- NOTE | 2016-10-20 09:16 | CONS ---
Date/Time of Note Date/Time of Note DATE: 10/20/16 TIME: 09:11 Assessment/Plan Assessment/Plan Chief Complaint/Hosp Course 51 yo with metastatic gastric cancer currently off chemotherapy given his weight loss and infection -cont IV antibiotics for pneumonia -once patient is strong enough and is clear of infection he can restart chemotherapy if his primary oncologist agrees -will defer this decision to Dr. spring Problems: Consultation Date/Type/Reason Admit Date/Time Oct 19, 2016 at 01:28 Date of Consultation: Oct 21, 2016 Type of Consultation: oncology Reason for Consultation gastric cancer Referring Provider: ELISA JORDAN [employer]ER Hx of Present Illness (pt's oncologic history was obtained by primary oncologist, Dr. Spring). 51 yo male with a history of gastric cancer dx late 2015. Pt went on the receive 6 cycles of neoadjuvant Folfox and proceeded with partial gastrectomy. Unfortunately during the surgery pt was noted to have peritoneal carcinomatosis. He went on to receive 2 doses of adjuvant Folfox but due to side effects patient decided not to continue with treatment. His last chemotherapy was given approximately 2 months ago. He now presents with fevers. A CXR was done which did demonstrate evidence of left lower lobe pneumonia. Pt is now on antibiotics. Social History Alcohol Use: none Smoking Status: Former smoker Drug Use: none Exam/Review of Systems Vital Signs Vitals Vital Signs Date Time Temp Pulse Resp B/P Pulse Ox O2 Delivery O2 Flow Rate FiO2 10/20/16 07:30 70 18 96 21 10/20/16 04:51 98.9 10/20/16 02:03 128/69 10/19/16 02:43 Room Air Intake and Output 10/19/16 10/19/16 10/20/16 15:00 23:00 07:00 Intake Total 150 ml 1510 ml 1450 ml Output Total 800 ml Balance 150 ml 1510 ml 650 ml Exam Constitutional: alert, oriented Psych: nl mood/affect, no complaints Head: normocephalic Eyes: nl conjunctiva ENMT: nl external ears & nose, nl lips & teeth Neck: non-tender, supple Respiratory: clear to auscultation, normal air movement Cardiovascular: regular rate and rhythm Gastrointestinal: soft Musculoskeletal: nl extremities to inspection, nl gait and stance Extremities: normal pulses Neurological: LEATHER ETCHER II-XII intact Results Result Diagram: 10/20/1645410/20/16454 Results 24 hrs Laboratory Tests Test 10/19/16 20:00 10/20/16 04:55 10/20/16 04:57 Urine Color STRAW Urine Clarity CLEAR Urine pH 6.0 Urine Specific [place] 1.013 Urine Ketones NEGATIVE Urine Nitrite NEGATIVE Urine Bilirubin NEGATIVE Urine Urobilinogen NEGATIVE Urine Leukocyte Esterase NEGATIVE Urine Hemoglobin NEGATIVE Urine Glucose NEGATIVE Urine Total Protein NEGATIVE White Blood Count 8.1 Red Blood Count 3.75 L Hemoglobin 10.9 L Hematocrit 32.4 L Mean Corpuscular Volume 86.4 Mean Corpuscular Hemoglobin 29.1 Mean Corpuscular Hemoglobin Concent 33.6 Red Cell Distribution Width 14.5 Platelet Count 139 L Mean Platelet Volume 9.7 Neutrophils % 80.9 H Lymphocytes % 13.3 L Monocytes % 5.1 Eosinophils % 0.1 Basophils % 0.1 Nucleated Red Blood Cells % 0.0 Neutrophils # 6.5 Lymphocytes # 1.1 Monocytes # 0.4 Eosinophils # 0.0 Basophils # 0.0 Nucleated Red Blood Cells # 0.0 Sodium Level 135 Potassium Level 3.7 Chloride Level 102 Carbon Dioxide Level 26 Anion Gap 11 Blood Urea Nitrogen 13 Creatinine 0.67 Glucose Level 104 Hemoglobin A1c 5.4 Calcium Level 8.7 Total Bilirubin 0.5 Direct Bilirubin 0.00 Indirect Bilirubin 0.5 Aspartate Amino Transf (AST/SGOT) 16 Alanine Aminotransferase (ALT/SGPT) 44 Alkaline Phosphatase 53 Total Protein 6.3 Albumin 3.7 Globulin 2.60 Albumin/Globulin Ratio 1.42 Prothrombin Time 21.0 H Prothrombin Time Ratio 1.6 INR International Normalized Ratio 1.80 Phosphorus Level 4.5 Magnesium Level 1.6 L Triglycerides Level 116 Cholesterol Level 122 LDL Cholesterol, Calculated 26 HDL Cholesterol 73 H Cholesterol/HDL Ratio 1.6 Medications Medications Current Medications Ondansetron HCl (Zofran Inj) 4 mg Q6H PRN IV NAUSEA AND/OR VOMITING; Start 02/25 at 03:30 Acetaminophen (Tylenol Tab) 650 mg Q6H PRN PO PAIN LEVEL 1-3 OR FEVER Last administered on 10/20/16t 03:04; Admin Dose 650 MG; Start 10/19/16 at 03:30 Morphine Sulfate (morphine) 2 mg Q4H PRN IV PAIN LEVEL 7-10; Start 10/19/16 at 03:30 Zolpidem Tartrate (Ambien) 5 mg QHS PRN PO INSOMNIA; Start 10/19/16 at 03:30 Pantoprazole 40 mg 40 mg DAILY@06 IV Last administered on 10/20/16 04:43; Admin Dose 40 MG; Start 10/19/16 at 06:00 Sodium Chloride 1,000 ml @ 75 mls/hr [id number] IV Last administered on 20:40; Admin Dose 75 MLS/HR; Start 10/19/16 at 05:30 Levofloxacin/ Dextrose (Levaquin 750 Mg/ D5W 150 ml (Pmx)) 150 ml @ 100 mls/hr Q24H IVPB Last administered on 10/20/16 04:43; Admin Dose 100 MLS/HR; Start at 07:00 Cholecalciferol (Vitamin D) 800 units DAILY PO Last administered on 10/20/16 08:04; Admin Dose 800 UNITS; Start 10/19/16 at 09:00 Cyanocobalamin (Vitamin B12) 1,000 mcg DAILY PO Last administered on 10/20/16 08:05; Admin Dose 1,000 MCG; Start 10/19/16 at 09:00 Gabapentin (Neurontin) 600 mg TID PO Last administered on 10/20/16 08:05; Admin Dose 600 MG; Start 10/19/16 at 09:00 Senna (Senokot) 1 tab DAILY PO Last administered on 10/20/16 08:04; Admin Dose 1 TAB; Start 10/19/16 at 09:00 Warfarin Sodium 5 mg 5 mg DAILY@17 PO Last administered on 10/19/16 17:45; Admin Dose 5 MG; Start 10/19/16 at 17:00 Piperacillin Sod/ Tazobactam Sod 100 ml @ 200 mls/hr Q6 IVPB Last administered on 10/20/16 04:43; Admin Dose 200 MLS/HR; Start 10/19/16 at 21:30 Vancomycin HCl (Vancocin) 250 ml @ 125 mls/hr Q12H IVPB ; Start 10/20/16 at 12: 30 Miscellaneous Information (*Rx Drug Level Order Reminder*) VANCOMYCIN TROUGH AT 1130 ONCE ONCE XX ; Start 10/21/16 at 11:30; Stop 10/21/16 at 11:31 ADELSO SAMANIEGO M.D. Oct 20, 2016 09:15
--- NOTE | 2016-10-20 11:42 | PN ---
Date/Time of Note Date/Time of Note DATE: 10/20/16 TIME: 11:41 Assessment/Plan VTE Prophylaxis VTE Prophylaxis Intervention: other (Warfarin) Lines/Catheters IV [facility] PORT A CATH Assessment/Plan Chief Complaint/Hosp Course 1. Sepsis with underlying community-acquired pneumonia. No evidence of septic shock. Continue antibiotics. Cultures negative. 2. Community acquired pneumonia. Continue antibiotics. Continue inhaled bronchodilators. 3. Gastric cancer diagnosed in October 2015. Status post partial gastrectomy. Patient undergoing chemotherapy as outpatient because of peritoneal carcinomatosis. The patient being followed by oncology. 4. Normocytic, normochromic anemia. Most probably anemia of chronic disease. Monitor H&H closely. Obtain iron panel. 5. Hypothyroidism. Continue Synthroid. 6. Right lower extremity DVT. Patient on Coumadin. INR subtherapeutic. 7. Fluids, electrolytes, and nutrition. Regular diet. 8. DVT prophylaxis. On therapeutic anticoagulation. 9. Gastrointestinal prophylaxis. Proton pump inhibitors. 10. Plan. Continue antimicrobials. Await clinical improvement. Case discussed with Dr. Reyes. Problems: Subjective 24 Hr Interval Summary Free Text/Dictation The patient was febrile overnight. Exam/Review of Systems Vital Signs Vitals Vital Signs Date Time Temp Pulse Resp B/P Pulse Ox O2 Delivery O2 Flow Rate FiO2 10/20/16 08:05 98.4 100 16 127/70 99 10/20/16 07:30 21 10/19/16 02:43 Room Air Intake and Output 10/19/16 10/19/16 10/20/16 15:00 23:00 07:00 Intake Total 150 ml 1510 ml 1450 ml Output Total 800 ml Balance 150 ml 1510 ml 650 ml Exam General: Adequately build 51 year-old male lying in bed in no apparent distress. HEENT: Normocephalic, atraumatic. Eyes: Anicteric sclerae, conjunctivae clear. ENT: Nasal septum midline, oral mucosa moist. Neck supple, no JVD noticed. Respiratory: Bilaterally diminished breath sounds. No use of accessory muscles of respiration. Bilateral rhonchi. Cardiovascular: S1, S2 heard. No murmurs or gallops. Abdomen: Soft, nontender, and nondistended. Bowel sounds positive in all 4 quadrants. Genitourinary: Deferred. Extremities: No cyanosis, no clubbing, no edema. Peripheral pulses palpable. Neurologic: Cranial nerves II through XII grossly intact. The patient is awake, alert, and oriented. Skin: Normal skin turgor. No skin rashes. Results Result Diagram: 10/20/16 0455 10/20/16 0455 Results 24 hrs Laboratory Tests Test 10/19/16 20:00 10/20/16 04:55 10/20/16 04:57 Urine Color STRAW Urine Clarity CLEAR Urine pH 6.0 Urine Specific [place] 1.013 Urine Ketones NEGATIVE Urine Nitrite NEGATIVE Urine Bilirubin NEGATIVE Urine Urobilinogen NEGATIVE Urine Leukocyte Esterase NEGATIVE Urine Hemoglobin NEGATIVE Urine Glucose NEGATIVE Urine Total Protein NEGATIVE White Blood Count 8.1 Red Blood Count 3.75 L Hemoglobin 10.9 L Hematocrit 32.4 L Mean Corpuscular Volume 86.4 Mean Corpuscular Hemoglobin 29.1 Mean Corpuscular Hemoglobin Concent 33.6 Red Cell Distribution Width 14.5 Platelet Count 139 L Mean Platelet Volume 9.7 Neutrophils % 80.9 H Lymphocytes % 13.3 L Monocytes % 5.1 Eosinophils % 0.1 Basophils % 0.1 Nucleated Red Blood Cells % 0.0 Neutrophils # 6.5 Lymphocytes # 1.1 Monocytes # 0.4 Eosinophils # 0.0 Basophils # 0.0 Nucleated Red Blood Cells # 0.0 Sodium Level 135 Potassium Level 3.7 Chloride Level 102 Carbon Dioxide Level 26 Anion Gap 11 Blood Urea Nitrogen 13 Creatinine 0.67 Glucose Level 104 Hemoglobin A1c 5.4 Calcium Level 8.7 Total Bilirubin 0.5 Direct Bilirubin 0.00 Indirect Bilirubin 0.5 Aspartate Amino Transf (AST/SGOT) 16 Alanine Aminotransferase (ALT/SGPT) 44 Alkaline Phosphatase 53 Total Protein 6.3 Albumin 3.7 Globulin 2.60 Albumin/Globulin Ratio 1.42 Prothrombin Time 21.0 H Prothrombin Time Ratio 1.6 INR International Normalized Ratio 1.80 Phosphorus Level 4.5 Magnesium Level 1.6 L Triglycerides Level 116 Cholesterol Level 122 LDL Cholesterol, Calculated 26 HDL Cholesterol 73 H Cholesterol/HDL Ratio 1.6 Medications Medications Current Medications Ondansetron HCl (Zofran Inj) 4 mg Q6H PRN IV NAUSEA AND/OR VOMITING; Start 02/25 at 03:30 Acetaminophen (Tylenol Tab) 650 mg Q6H PRN PO PAIN LEVEL 1-3 OR FEVER Last administered on 10/20/16t 09:11; Admin Dose 650 MG; Start 10/19/16 at 03:30 Morphine Sulfate (morphine) 2 mg Q4H PRN IV PAIN LEVEL 7-10; Start 10/19/16 at 03:30 Zolpidem Tartrate (Ambien) 5 mg QHS PRN PO INSOMNIA; Start 10/19/16 at 03:30 Pantoprazole 40 mg 40 mg DAILY@06 IV Last administered on 10/20/16 04:43; Admin Dose 40 MG; Start 10/19/16 at 06:00 Sodium Chloride 1,000 ml @ 75 mls/hr [id number] IV Last administered on 20:40; Admin Dose 75 MLS/HR; Start 10/19/16 at 05:30 Levofloxacin/ Dextrose (Levaquin 750 Mg/ D5W 150 ml (Pmx)) 150 ml @ 100 mls/hr Q24H IVPB Last administered on 10/20/16 04:43; Admin Dose 100 MLS/HR; Start at 07:00 Cholecalciferol (Vitamin D) 800 units DAILY PO Last administered on 10/20/16 08:04; Admin Dose 800 UNITS; Start 10/19/16 at 09:00 Cyanocobalamin (Vitamin B12) 1,000 mcg DAILY PO Last administered on 10/20/16 08:05; Admin Dose 1,000 MCG; Start 10/19/16 at 09:00 Gabapentin (Neurontin) 600 mg TID PO Last administered on 10/20/16 08:05; Admin Dose 600 MG; Start 10/19/16 at 09:00 Senna (Senokot) 1 tab DAILY PO Last administered on 10/20/16 08:04; Admin Dose 1 TAB; Start 10/19/16 at 09:00 Warfarin Sodium 5 mg 5 mg DAILY@17 PO Last administered on 10/19/16 17:45; Admin Dose 5 MG; Start 10/19/16 at 17:00 Piperacillin Sod/ Tazobactam Sod 100 ml @ 200 mls/hr Q6 IVPB Last administered on 10/20/16 04:43; Admin Dose 200 MLS/HR; Start 10/19/16 at 21:30 Vancomycin HCl (Vancocin) 250 ml @ 125 mls/hr Q12H IVPB ; Start 10/20/16 at 12: 30 Miscellaneous Information (*Rx Drug Level Order Reminder*) VANCOMYCIN TROUGH AT 1130 ONCE ONCE XX ; Start 10/21/16 at 11:30; Stop 10/21/16 at 11:31 Acetaminophen/ Hydrocodone Bitart 1 tab 1 tab Q6H PRN PO Pain; Start 10/20/16 at 10:30 Magnesium Sulfate (Magnesium Sulfate 2 Gm/50 ml) 50 ml @ 25 mls/hr ONCE ONCE IVPB ; Start 10/20/16 at 12:30; Stop 10/20/16 at 14:29 ELISA JORDAN NP Oct 20, 2016 11:42
[2016-10-20] MEDS ORDERED: MAGNESIUM SULFATE 2 GM/50 ML 50 ML IVPB ONE (12:30)
[2016-10-20] MEDS: HYDROCODONE/APAP (5/325) TAB PO PRN ×2 (12:54→20:23)
[2016-10-20] MEDS ORDERED: FENTAnyl PATCH 75 MCG/HR TRANSDERM SCH (13:30)
[2016-10-20 14:23] VITALS: BP 92/52; RESP 16
[2016-10-20] MEDS: WARFARIN 5 MG TAB PO SCH (17:05)
--- NOTE | 2016-10-20 17:53 | CONS ---
Date/Time of Note Date/Time of Note DATE: 10/20/16 TIME: 17:53 Consultation Date/Type/Reason Admit Date/Time Oct 19, 2016 at 01:28 Type of Consultation: ID Social History Alcohol Use: none Smoking Status: Former smoker Drug Use: none Exam/Review of Systems Vital Signs Vitals Vital Signs Date Time Temp Pulse Resp B/P Pulse Ox O2 Delivery O2 Flow Rate FiO2 10/20/16 14:23 98.3 60 16 92/52 96 10/20/16 14:08 21 10/19/16 02:43 Room Air Intake and Output 10/19/16 10/19/16 10/20/16 15:00 23:00 07:00 Intake Total 150 ml 1510 ml 1600 ml Output Total 800 ml Balance 150 ml 1510 ml 800 ml Results Result Diagram: 10/20/16 0455 10/20/16 0455 Results 24 hrs Laboratory Tests Test 10/19/16 20:00 10/20/16 04:55 10/20/16 04:57 Urine Color STRAW Urine Clarity CLEAR Urine pH 6.0 Urine Specific [place] 1.013 Urine Ketones NEGATIVE Urine Nitrite NEGATIVE Urine Bilirubin NEGATIVE Urine Urobilinogen NEGATIVE Urine Leukocyte Esterase NEGATIVE Urine Hemoglobin NEGATIVE Urine Glucose NEGATIVE Urine Total Protein NEGATIVE White Blood Count 8.1 Red Blood Count 3.75 L Hemoglobin 10.9 L Hematocrit 32.4 L Mean Corpuscular Volume 86.4 Mean Corpuscular Hemoglobin 29.1 Mean Corpuscular Hemoglobin Concent 33.6 Red Cell Distribution Width 14.5 Platelet Count 139 L Mean Platelet Volume 9.7 Neutrophils % 80.9 H Lymphocytes % 13.3 L Monocytes % 5.1 Eosinophils % 0.1 Basophils % 0.1 Nucleated Red Blood Cells % 0.0 Neutrophils # 6.5 Lymphocytes # 1.1 Monocytes # 0.4 Eosinophils # 0.0 Basophils # 0.0 Nucleated Red Blood Cells # 0.0 Sodium Level 135 Potassium Level 3.7 Chloride Level 102 Carbon Dioxide Level 26 Anion Gap 11 Blood Urea Nitrogen 13 Creatinine 0.67 Glucose Level 104 Hemoglobin A1c 5.4 Calcium Level 8.7 Total Bilirubin 0.5 Direct Bilirubin 0.00 Indirect Bilirubin 0.5 Aspartate Amino Transf (AST/SGOT) 16 Alanine Aminotransferase (ALT/SGPT) 44 Alkaline Phosphatase 53 Total Protein 6.3 Albumin 3.7 Globulin 2.60 Albumin/Globulin Ratio 1.42 Prothrombin Time 21.0 H Prothrombin Time Ratio 1.6 INR International Normalized Ratio 1.80 Phosphorus Level 4.5 Magnesium Level 1.6 L Triglycerides Level 116 Cholesterol Level 122 LDL Cholesterol, Calculated 26 HDL Cholesterol 73 H Cholesterol/HDL Ratio 1.6 Medications Medications Current Medications Ondansetron HCl (Zofran Inj) 4 mg Q6H PRN IV NAUSEA AND/OR VOMITING; Start 02/25 at 03:30 Acetaminophen (Tylenol Tab) 650 mg Q6H PRN PO PAIN LEVEL 1-3 OR FEVER Last administered on 10/20/16 09:11; Admin Dose 650 MG; Start 10/19/16 at 03:30 Morphine Sulfate (morphine) 2 mg Q4H PRN IV PAIN LEVEL 7-10; Start 10/19/16 at 03:30 Zolpidem Tartrate 5 mg 5 mg QHS PRN PO INSOMNIA; Start 10/19/16 at 03:30 Sodium Chloride (NS) 1,000 ml @ 75 mls/hr [id number] IV Last administered on 10/19 20:40; Admin Dose 75 MLS/HR; Start 10/19/16 at 05:30 Cholecalciferol (Vitamin D) 800 units DAILY PO Last administered on 10/20/16 08:04; Admin Dose 800 UNITS; Start 10/19/16 at 09:00 Cyanocobalamin (Vitamin B12) 1,000 mcg DAILY PO Last administered on 10/20/16 08:05; Admin Dose 1,000 MCG; Start 10/19/16 at 09:00 Gabapentin (Neurontin) 600 mg TID PO Last administered on 10/20/16 08:05; Admin Dose 600 MG; Start 10/19/16 at 09:00 Senna (Senokot) 1 tab DAILY PO Last administered on 10/20/16 08:04; Admin Dose 1 TAB; Start 10/19/16 at 09:00 Warfarin Sodium (Coumadin) 5 mg DAILY@17 PO Last administered on 10/20/16 17: 05; Admin Dose 5 MG; Start 10/19/16 at 17:00 Acetaminophen/ Hydrocodone Bitart ([place] (5/325)) 1 tab Q6H PRN PO Pain Last administered on 10/20/16 12:54; Admin Dose 1 TAB; Start 10/20/16 at 10:30 Fentanyl (Duragesic 75 Mcg/Hr Patch) 1 patch Q72H TRANSDERM Last administered on 10/20/16t 13:21; Admin Dose 1 PATCH; Start 10/20/16 at 13:30 Pantoprazole (Protonix Tab) 40 mg DAILY@06 PO ; Start 10/21/16 at 06:00 Levofloxacin (Levaquin) 750 mg DAILY@06 PO ; Start 10/21/16 at 06:00 EVONNE KO MD Oct 20, 2016 17:53
[2016-10-20 20:00] VITALS: BP 112/55; RESP 19
[2016-10-20] MEDS: SOD CHLORIDE 0.9% 1,000 ML IV SCH ×2 (21:30→23:44)
[2016-10-21 02:00] VITALS: BP 128/83; PULSE 71; RESP 19
[2016-10-21 03:00] VITALS: BP 99/62; RESP 17
[2016-10-21 04:54] LABS: ADD SCAN DIFF NO
[2016-10-21 04:56] LABS: BASOPHILS % 0.2 % (0.0-2.0); EOSINOPHILS # 0.1 10^3/ul (0.0-0.5); EOSINOPHILS % 1.6 % (0.0-7.0); HEMATOCRIT 26.8 % (42.0-52.0); HEMOGLOBIN 8.9 g/dl (14.0-18.0); LYMPHOCYTES # 1.5 10^3/ul (0.8-2.9); LYMPHOCYTES % 28.5 % (15.0-51.0); MEAN CORPUSCULAR HEMOGLOBIN 29.5 pg (29.0-33.0); MEAN CORPUSCULAR HGB CONC 33.2 g/dl (32.0-37.0); MEAN CORPUSCULAR VOLUME 88.7 fl (82.0-101.0); MEAN PLATELET VOLUME 9.5 fl (7.4-10.4); MONOCYTE # 0.3 10^3/ul (0.3-0.9); MONOCYTES % 5.4 % (0.0-11.0); NEUTROPHIL # 3.3 10^3/ul (1.6-7.5); NEUTROPHILS % 63.9 % (39.0-77.0); PLATELET COUNT 125 10^3/UL (140-415); RED BLOOD COUNT 3.02 10^6/ul (4.70-6.10); RED CELL DISTRIBUTION WIDTH 14.7 % (11.5-14.5); WHITE BLOOD COUNT 5.2 10^3/ul (4.8-10.8)
[2016-10-21 05:17] LABS: MAGNESIUM 2.1 mg/dl (1.7-2.5); PHOSPHORUS 3.4 mg/dl (2.5-4.9)
[2016-10-21 05:19] LABS: INR 2.3; PROTIME 25.6 Sec (12.2-14.2)
[2016-10-21 05:19] LABS: CALCIUM 8.2 mg/dl (8.4-10.2); CREATININE 0.59 mg/dl (0.61-1.24); POTASSIUM 3.4 mmol/L (3.5-5.1)
[2016-10-21] MEDS ORDERED: PANTOPRAZOLE (EC) 40 MG TAB PO SCH (06:00)
[2016-10-21] MEDS ORDERED: LEVOFLOXACIN 750 MG TABLET PO SCH (06:00)
[2016-10-21] MEDS: LEVOTHYROXINE 175 MCG TAB PO SCH (06:32)
[2016-10-21 08:20] VITALS: BP 129/63; RESP 16
[2016-10-21] MEDS: SENNA TAB PO SCH (08:38)
[2016-10-21] MEDS: CHOLECALCIFEROL 400 UNITS TAB PO SCH (08:38)
[2016-10-21] MEDS: GABAPENTIN 300 MG CAP PO SCH ×2 (08:38→12:56)
[2016-10-21] MEDS: CYANOCOBALAMIN 500 MCG TAB PO SCH (08:38)
[2016-10-21] MEDS: ALBUTEROL/IPRATROPIUM (NEB) 3 ML AMP HHN SCH ×2 (08:57→13:23)
[2016-10-21] MEDS: HYDROCODONE/APAP (5/325) TAB PO PRN (08:57)
[2016-10-21] MEDS ORDERED: POTASSIUM CHLORIDE (SR) 10 MEQ TAB PO ONE (12:00)
--- NOTE | 2016-10-21 14:18 | CONS ---
Date/Time of Note Date/Time of Note DATE: 10/21/16 TIME: 14:17 Assessment/Plan Assessment/Plan Chief Complaint/Hosp Course No acute events, patient is awake ambulating in the hallway, afebrile WBC 5.2 platelets 125 no shift BUN 18 creatinine 0.59 Antibiotics: Levaquin status post vancomycin and Zosyn Microbiology: All cultures have been negative Physical examination: Well-developed middle-aged man who is in no distress head atraumatic normocephalic sclera nonicteric vehicle mucosa pink dry neck is supple chest rise symmetrical breath sounds diminished heart S1-S2 abdomen soft bowel tones present extremities without cyanosis Assessment: 1. Community-acquired pneumonia 2. Ongoing fevers 3. History of gastric cancer status post chemotherapy with partial gastrectomy that revealed peritoneal carcinomatosis 4. Anemia 5. History of DVT Plan: Clinically stable, continue present care, continue on Levaquin follow oncology recommended recommendations Discussed with Problems: Consultation Date/Type/Reason Admit Date/Time Oct 20, 2016 at 11:04 Initial Consult Date 10/20/16 Type of Consultation: ID Referring Provider: ELISA JORDAN GOVERNMENT GUARD Exam/Review of Systems Vital Signs Vitals Vital Signs Date Time Temp Pulse Resp B/P Pulse Ox O2 Delivery O2 Flow Rate FiO2 10/21/16 13:23 83 18 98 21 10/21/16 08:20 97.6 129/63 10/21/16 02:00 Room Air Intake and Output 10/20/16 10/20/16 10/21/16 15:00 23:00 07:00 Intake Total 100 ml 1450 ml 1225 ml Balance 100 ml 1450 ml 1225 ml Results Result Diagram: 10/21/16 0445 10/21/16 0445 Results 24 hrs Laboratory Tests Test 10/21/16 04:40 10/21/16 04:45 Prothrombin Time 25.6 #H Prothrombin Time Ratio 2.0 INR International Normalized Ratio 2.30 White Blood Count 5.2 # Red Blood Count 3.02 L Hemoglobin 8.9 L Hematocrit 26.8 L Mean Corpuscular Volume 88.7 Mean Corpuscular Hemoglobin 29.5 Mean Corpuscular Hemoglobin Concent 33.2 Red Cell Distribution Width 14.7 H Platelet Count 125 L Mean Platelet Volume 9.5 Neutrophils % 63.9 Lymphocytes % 28.5 Monocytes % 5.4 Eosinophils % 1.6 Basophils % 0.2 Nucleated Red Blood Cells % 0.0 Neutrophils # 3.3 Lymphocytes # 1.5 Monocytes # 0.3 Eosinophils # 0.1 Basophils # 0.0 Nucleated Red Blood Cells # 0.0 Sodium Level 136 Potassium Level 3.4 L Chloride Level 106 Carbon Dioxide Level 28 Anion Gap 5 L Blood Urea Nitrogen 18 Creatinine 0.59 L Glucose Level 85 Calcium Level 8.2 L Phosphorus Level 3.4 Magnesium Level 2.1 Medications Medications Current Medications Ondansetron HCl (Zofran Inj) 4 mg Q6H PRN IV NAUSEA AND/OR VOMITING; Start 02/25 at 03:30 Acetaminophen (Tylenol Tab) 650 mg Q6H PRN PO PAIN LEVEL 1-3 OR FEVER Last administered on 10/20/16 09:11; Admin Dose 650 MG; Start 10/19/16 at 03:30 Morphine Sulfate (morphine) 2 mg Q4H PRN IV PAIN LEVEL 7-10; Start 10/19/16 at 03:30 Zolpidem Tartrate 5 mg 5 mg QHS PRN PO INSOMNIA; Start 10/19/16 at 03:30 Sodium Chloride (NS) 1,000 ml @ 75 mls/hr [id number] IV Last administered on 10/20 23:44; Admin Dose 75 MLS/HR; Start 10/19/16 at 05:30 Cholecalciferol (Vitamin D) 800 units DAILY PO Last administered on 10/21/16 08:38; Admin Dose 800 UNITS; Start 10/19/16 at 09:00 Cyanocobalamin (Vitamin B12) 1,000 mcg DAILY PO Last administered on 10/21/16 08:38; Admin Dose 1,000 MCG; Start 10/19/16 at 09:00 Gabapentin (Neurontin) 600 mg TID PO Last administered on 10/21/16 08:38; Admin Dose 600 MG; Start 10/19/16 at 09:00 Senna (Senokot) 1 tab DAILY PO Last administered on 10/21/16 08:38; Admin Dose 1 TAB; Start 10/19/16 at 09:00 Warfarin Sodium (Coumadin) 5 mg DAILY@17 PO Last administered on 10/20/16 17: 05; Admin Dose 5 MG; Start 10/19/16 at 17:00 Acetaminophen/ Hydrocodone Bitart ([place] (5/325)) 1 tab Q6H PRN PO Pain Last administered on 10/21/16 08:57; Admin Dose 1 TAB; Start 10/20/16 at 10:30 Fentanyl (Duragesic 75 Mcg/Hr Patch) 1 patch Q72H TRANSDERM Last administered on 10/20/16 13:21; Admin Dose 1 PATCH; Start 10/20/16 at 13:30 Pantoprazole (Protonix Tab) 40 mg DAILY@06 PO Last administered on 10/21/16 06 :32; Admin Dose 40 MG; Start 10/21/16 at 06:00 Levofloxacin (Levaquin) 750 mg DAILY@06 PO Last administered on 10/21/16 06:32 ; Admin Dose 750 MG; Start 10/21/16 at 06:00 ALVIN ROBERTS NP Oct 21, 2016 14:17
[2016-10-21 14:32] VITALS: BP 97/56; RESP 20
--- NOTE | 2016-10-21 14:52 | PDOCDIS ---
Discharge Instructions DIAGNOSIS Discharge Diagnosis Community-acquired pneumonia. CONDITION Patient Condition: Stable HOME CARE INSTRUCTIONS: Diet Instructions: Regular FOLLOW UP/APPOINTMENTS Follow-up Plan Marquez Vyas MD Specialty: Internal Medicine Office Address: [address] [place], [place] [id number] Office OTHER ORDERS: Other Orders: 1. Complete the course of antibiotics. 2. Regular diet as tolerated 3. Resume activities as tolerated. 4. Follow-up with your oncologist as scheduled. 5. Follow-up with your primary care physician in 1 week. If you do not have a primary care physician, please call Dr. Marquez Vyas's office. ELISA JORDAN NP Oct 21, 2016 14:51
[2016-10-21] MEDS ORDERED: LEVO500T10 PO (14:54)
--- NOTE | 2016-10-21 16:32 | DS ---
Date/Time of Note Date/Time of Note DATE: 10/21/16 TIME: 16:30 Discharge Summary Admission/Discharge Info Admit Date/Time Oct 20, 2016 at 11:04 Discharge Date/Time Discharge Diagnosis 1. Community-acquired pneumonia. 2. Status post sepsis secondary to community-acquired pneumonia. 3. Gastric cancer diagnosed in October 2015. Status post partial gastrectomy. 4. Normocytic, normochromic anemia. 5. Hypothyroidism. 6. Right lower extremity DVT. Patient Condition: Stable Consults 1. Kole Oquendo MD, Infectious Diseases. 2. Ramona Junior MD, Oncology. Procedures 1. Sepsis with underlying community-acquired pneumonia. 2. Community acquired pneumonia. 3. Gastric cancer with peritoneal carcinomatosis. 4. Normocytic, normochromic anemia. 5. Hypothyroidism. 6. Right lower extremity DVT. Hx of Present Illness Chief complaint: Fevers and feeling weak This is a 51-year-old male comes in with fever for 1 hour. He has a history of stomach cancer with last chemotherapy 2 months ago. Denies any nausea or vomiting. He does state that he felt weak earlier. He had gone to the pool filled out for his kids but did not swim. After that he states that he just felt really tired and was sleeping the whole time. Denies any cough. Allergies: NKDA Medications: See MAR Hospital Course The patient was admitted to inpatient setting. Pancultures were ordered. The patient was started on empiric antibiotics. Patient's chest x-ray was negative upon admission. However the patient underwent a CT scan of the abdomen and pelvis that showed patchy airspace opacities in the left lower lobe suggestive of pneumonia. The patient's smith cultures remain negative. Nevertheless, the patient continued to have febrile episodes. Hence, infectious disease consult was obtained. The patient was maintained on antibiotics as per infectious diseases with improvement the patient's symptoms. The patient has underlying gastric cancer diagnosed in October 2015. The patient is status post partial gastrectomy. The patient is undergoing chemotherapy as outpatient because of peritoneal carcinomatosis. The patient was evaluated by oncology during the patient's hospital course. The patient was noticed to have normocytic, normochromic anemia. The patient's H&H remained stable and did not require any blood transfusion. The patient has underlying hypothyroidism. The patient was maintained on Synthroid for the same. The patient has history of right lower extremity DVT. The patient was maintained on Coumadin and daily INR was checked. The patient had a stable hospital course the. The patient has remained afebrile for more than 24 hours. The patient will be discharged home on oral antibiotics as per infectious diseases. Discharge Instructions 1. Complete the course of antibiotics. 2. Regular diet as tolerated 3. Resume activities as tolerated. 4. Follow-up with your oncologist as scheduled. 5. Follow-up with your primary care physician in 1 week. If you do not have a primary care physician, please call Dr. Marquez Vyas's office. The patient verbalized understanding of his discharge instructions. Case discussed with Dr. Reyes. Home Meds Active Scripts Levofloxacin* (Levofloxacin*) 500 Mg Tablet, 500 MG PO DAILY for 7 Days, TAB Prov:ELISA JORDAN NP 10/21/16 Hydrocodone/Acetaminophen ([place] 10-325 Tablet) 1 Each Tablet, 1 EACH PO EVERY 6 HOURS, #30 TAB Prov:GREG CELESTE DO 12/12/15 Warfarin Sod (Coumadin) 2 Mg Tab, 5 MG PO DAILY@17, #20 TAB Prov:JIL THOMSON MD 07/13/15 Reported Medications Sennosides* (Senna Lax*) 8.6 Mg Tablet, 1 TAB PO DAILY, TAB 10/18/16 Ca Carb & Gluc/Mag Ox & Gluc (CALCIUM MAGNESIUM CAPLET) 1 Each Tablet, 1 EACH PO , TAB 10/18/16 Cholecalciferol* (Vitamin D*) 400 Unit Tablet, 800 UNIT PO DAILY, TAB 10/18/16 Cyanocobalamin* (Vitamin B12*) 500 Mcg Tab, 1000 MCG PO DAILY, TAB 10/18/16 Albuterol Sulfate* (Ventolin HFA*) 18 Gm Hfa.aer.ad, 2 PUFF INHALATION Q6H, #1 INHALER 07/13/15 Gabapentin* (Gabapentin*) 600 Mg Tablet, 600 MG PO TID, #90 TAB 07/13/15 Levothyroxine Sodium* (Levothyroxine Sodium*) 175 Mcg Tablet, 175 MCG PO DAILY, #30 TAB 07/13/15 Discontinued Reported Medications Aspirin (Aspirin) 81 Mg Chew, 81 MG PO DAILY, TAB.CHEW 07/13/15 Docusate Sodium* (Doc-Q-Lace*) 100 Mg Capsule, 100 MG PO BID Y for CONSTIPATION , CAP 07/13/15 Gemfibrozil* (Gemfibrozil*) 600 Mg Tablet, 600 MG PO BID, TAB 07/13/15 Discontinued Scripts Ciprofloxacin Hcl* (Ciprofloxacin Hcl*) 500 Mg Tablet, 500 MG PO BID for 7 Days , TAB Prov:CASEYKELLEN 04/08/16 Ciprofloxacin Hcl* (Ciprofloxacin Hcl*) 500 Mg Tablet, 500 MG PO BID, #14 TAB Prov:KELLEN PEÑA 04/08/16 Dicyclomine Hcl* (Bentyl*) 20 Mg Tablet, 20 MG PO QID, #30 TAB Prov:GREG CELESTE DO 12/12/15 Nicotine* (Nicoderm* Patch) 1 Patch Patch, 1 PATCH TRANSDERM DAILY, #10 PATCH 3 Refills Prov:JIL THOMSON MD 07/13/15 Enoxaparin Sodium (Enoxaparin Sodium) 100 Mg/Ml Soln, 90 MG SC Q12, #10 1 Refill Prov:JIL THOMSON MD 07/13/15 Hydrocodone Bit-Acetaminophen ([place]) 5-325 Mg Tablet, 1 TAB PO Q4H Y for PAIN, #14 TAB Prov:JOE SILVA DO 06/19/15 Naproxen* (Naproxen*) 500 Mg Tablet, 500 MG PO BID Y for PAIN, #20 TAB Prov:SHIRAJOE DO 06/19/15 Omeprazole* (Omeprazole*) 40 Mg Capsule.dr, 40 MG PO DAILY, #30 CAP Prov:DEVON JOYNER NP 05/18/15 Hydrocodone Bit-Acetaminophen* ([place]*) 5-325 Mg Tab, 1 TAB PO Q6 Y for PAIN, # 15 TAB Prov:DEVON JOYNER NP 05/18/15 Oseltamivir Phosphate* (Tamiflu*) 75 Mg Capsule, 75 MG PO BID for 5 Days, CAP Prov:DEVON JOYNER NP 05/18/15 Follow-up Plan Follow-up with your primary care physician 1 week. Follow-up with oncologist as scheduled. Primary Care Provider Follow-up with your primary care physician 1 week. Follow-up with oncologist as scheduled. Time spent on discharge: > 30 minutes Pending Labs Laboratory Tests Test 10/21/16 04:40 10/21/16 04:45 Prothrombin Time 25.6Sec (12.2-14.2) Prothrombin Time Ratio 2.0 INR International Normalized Ratio 2.30 White Blood Count 5.210^3/ul (4.8-10.8) Red Blood Count 3.0210^6/ul (4.70-6.10) Hemoglobin 8.9g/dl (14.0-18.0) Hematocrit 26.8% (42.0-52.0) Mean Corpuscular Volume 88.7fl (82.0-101.0) Mean Corpuscular Hemoglobin 29.5pg (29.0-33.0) Mean Corpuscular Hemoglobin Concent 33.2g/dl (32.0-37.0) Red Cell Distribution Width 14.7% (11.5-14.5) Platelet Count 65824^3/UL (140-415) Mean Platelet Volume 9.5fl (7.4-10.4) Neutrophils % 63.9% (39.0-77.0) Lymphocytes % 28.5% (15.0-51.0) Monocytes % 5.4% (0.0-11.0) Eosinophils % 1.6% (0.0-7.0) Basophils % 0.2% (0.0-2.0) Nucleated Red Blood Cells % 0.0/100WBC (0.0-0.0) Neutrophils # 3.310^3/ul (1.6-7.5) Lymphocytes # 1.510^3/ul (0.8-2.9) Monocytes # 0.310^3/ul (0.3-0.9) Eosinophils # 0.110^3/ul (0.0-0.5) Basophils # 0.010^3/ul (0.0-0.1) Nucleated Red Blood Cells # 0.010^3/ul (0.0-0.0) Sodium Level 136mmol/L (135-144) Potassium Level 3.4mmol/L (3.5-5.1) Chloride Level 106mmol/L (97-110) Carbon Dioxide Level 28mmol/L (21-31) Anion Gap 5 (8-16) Blood Urea Nitrogen 18mg/dl (7-20) Creatinine 0.59mg/dl (0.61-1.24) Glucose Level 85mg/dl (70-220) Calcium Level 8.2mg/dl (8.4-10.2) Phosphorus Level 3.4mg/dl (2.5-4.9) Magnesium Level 2.1mg/dl (1.7-2.5) Microbiology Date/Time Source Procedure Growth Status 10/20/16 18:00 Nasopharyngeal Influenza Types A,B Direct EIA - Final Complete ELISA JORDAN NP Oct 21, 2016 16:32
[2016-10-21] MEDS: WARFARIN 5 MG TAB PO SCH (16:48)
--- NOTE | 2016-10-21 17:58 | RADRPT ---
PROCEDURE: XR Chest. CLINICAL INDICATION: Shortness of breath. TECHNIQUE: Single frontal view. COMPARISON: 10/18/2016. FINDINGS: The tunneled right internal jugular vein implanted port central venous catheter remains in satisfact ory position. The lungs are clear. The heart size is normal. There is no pleural effusion. There is no pneumothorax. IMPRESSION: 1. Central line in satisfactory position. 2. Clear lungs. RPTAT: QQ .West Ya MD, MD Date Time Electronically viewed and signed by .West Ya MD, MD on 10/21/2016 17:58 .R/
[2016-10-21] MEDS ORDERED: HEPARIN (100 UNITS/ML) 5 ML SYG CATHETER ONE (18:30)
== END 2016-10-21 18:51 | disposition home or self-care (01) | DRG 871 ==
LOC: E/R 20:00 → PP2 10-19 01:28 → OBSVTOIN 10-20 11:04
PROVIDERS: ADMIT Family Medicine; ATTEND Family Medicine
DX: A41.9 Sepsis, unspecified organism (principal); J18.9 Pneumonia, unspecified organism; C16.9 Malignant neoplasm of stomach, unspecified; C78.6 Secondary malignant neoplasm of retroperitoneum and peritoneum; D64.9 Anemia, unspecified; E03.9 Hypothyroidism, unspecified; Z86.718 Personal history of other venous thrombosis and embolism; Z79.01 Long term (current) use of anticoagulants; Z87.891 Personal history of nicotine dependence
CPT/HCPCS: 36415; 71010; 74176; 80048; 80053; 80061; 81003; 83036; 83605; 83735; 84100; 84443; 84484; 85025; 85610; 85730; 87040; 87086; 87400; 93005; 94640; 94664; 96374; 96375; G0378; C9113; J0692; J1642; J1956; J2543; J3370; J3475; J7030

== ENCOUNTER 2016-12-17 19:32 | Emergency (ER) | payer OTHER ==
[~2016-12-17] VITALS: Ht 167.6 cm; Wt 46.0 kg
[~2016-12-17 19:32] MED LIST changes: -ASPI81TA3 PO; +CA C1TAB66 PO; +CHOL400T10 PO; -CIPR500T4 PO; +CYAN500T46 PO; -DICY20TA59 PO; -DOCU100C26 PO; -ENOX100D2 SC; -GEMF600T60 PO; -HYDR-3498 PO; -HYDR-906 PO; +LEVO500T10 PO; -NAPR-688 PO; -NICO-524 TRANSDERM; -OMEP40CA6 PO; -OSLT75C PO; +SENN-53 PO
[2016-12-17 19:39] VITALS: Ht 167.6 cm; Wt 46.0 kg
== END 2016-12-17 21:40 | disposition left against medical advice (07) ==
LOC: FTE 19:32
DX: Z53.21 Procedure and treatment not carried out due to patient leaving prior to being seen by health care provider (principal)

== ENCOUNTER 2017-02-01 10:39 | Emergency (ER) | payer SELFPAY ==
[~2017-02-01] VITALS: Ht 167.6 cm; Wt 45.0 kg
[2017-02-01 10:46] VITALS: Ht 167.6 cm; Wt 45.0 kg
== END 2017-02-01 10:49 | disposition left against medical advice (07) ==
LOC: E/R 10:39
DX: Z53.21 Procedure and treatment not carried out due to patient leaving prior to being seen by health care provider (principal)

== ENCOUNTER 2017-02-05 09:21 | Emergency (ER) | payer OTHER ==
[~2017-02-05] VITALS: Ht 167.6 cm; Wt 45.0 kg
[2017-02-05 09:24] VITALS: Ht 167.6 cm; Wt 45.0 kg
[2017-02-05] MEDS ORDERED: ONDANSETRON INJ 8 MG in DEXTROSE 5% 50 ML IV STA (09:33)
[2017-02-05] MEDS ORDERED: KETOROLAC 15 MG INJ IV STA (09:33)
[2017-02-05] MEDS ORDERED: SOD CHLORIDE 0.9% 500 ML IV STA (09:33)
[2017-02-05] MEDS ORDERED: ONDANSETRON 4 MG INJ IV STA (09:57)
--- NOTE | 2017-02-05 09:57 | ERD ---
ER Documentation Chief Complaint Chief Complaint LT FLANK PAIN SINCE YESTERDAY HPI This is a 51-year-old male with a past medical history of thyroid cancer sp resection and chronic tracheostomy, gastric cancer sp resection with previous G tube now removed, neuropathy, hypothyroidism, constipation on Coumadin who is presenting with left-sided flank pain radiating into the left abdomen since yesterday. It is associated with nausea and one episode of nonbilious nonbloody vomiting. The patient denies abdominal pain or changes to bowel movements or urination. He had a normal bowel movement today. No diarrhea or hard stools. He does have a fentanyl patch placed currently with some relief of the pain. The patient denies feeling sick recently. The patient denies fever or chills. The patient has had no headache or vision changes. The patient denies lightheadedness or dizziness. The patient has had no chest pain or shortness of breath trouble breathing. The patient has had no focal deficits. The patient has had no weakness or numbness or tingling to the face or extremities. ROS All systems reviewed and are negative except as per history of present illness. Medications Home Meds Reported Medications Hydrocodone/Acetaminophen ([place] 10-325 Tablet) 1 Each Tablet, 1 EACH PO Q4 Y for PAIN, TAB 02/05/17 Warfarin Sodium* (Coumadin*) 5 Mg Tablet, 5 MG PO SUN,TUE,TUE,,SAT, TAB 02/05/17 Warfarin Sodium* (Coumadin*) 2.5 Mg Tablet, 2.5 MG PO MON AND FRI, TAB 02/05/17 Sennosides* (Senna Lax*) 8.6 Mg Tablet, 1 TAB PO DAILY, TAB 10/18/16 Ca Carb & Gluc/Mag Ox & Gluc (CALCIUM MAGNESIUM CAPLET) 1 Each Tablet, 1 EACH PO , TAB 10/18/16 Cholecalciferol* (Vitamin D*) 400 Unit Tablet, 800 UNIT PO DAILY, TAB 10/18/16 Cyanocobalamin* (Vitamin B12*) 500 Mcg Tab, 1000 MCG PO DAILY, TAB 10/18/16 Albuterol Sulfate* (Ventolin HFA*) 18 Gm Hfa.aer.ad, 2 PUFF INHALATION Q6H, #1 INHALER 07/13/15 Gabapentin* (Gabapentin*) 600 Mg Tablet, 600 MG PO TID, #90 TAB 07/13/15 Levothyroxine Sodium* (Levothyroxine Sodium*) 175 Mcg Tablet, 175 MCG PO DAILY, #30 TAB 07/13/15 Discontinued Scripts Levofloxacin* (Levofloxacin*) 500 Mg Tablet, 500 MG PO DAILY for 7 Days, TAB Prov:BOO JORDANY ANG 10/21/16 Hydrocodone/Acetaminophen ([place] 10-325 Tablet) 1 Each Tablet, 1 EACH PO EVERY 6 HOURS, #30 TAB Prov:GREG CELESTE DO 12/12/15 Warfarin Sod (Coumadin) 2 Mg Tab, 5 MG PO DAILY@17, #20 TAB Prov:JIL THOMSON MD 07/13/15 Allergies Allergies: Coded Allergies: No Known Allergy (Unverified , 02/05/17) PMhx/Soc History of Surgery: Yes (tracheostomy, stomach sx, gt removed) Anesthesia Reaction: No Hx Neurological Disorder: Yes (spinal cord injury level T1) Hx Respiratory Disorders: No Hx Cardiac Disorders: No Hx Psychiatric Problems: No Hx Alcohol Use: No Hx Substance Use: No Hx Tobacco Use: Yes FmHx Family History: No diabetes Physical Exam Vitals Vital Signs Date Time Temp Pulse Resp B/P Pulse Ox O2 Delivery O2 Flow Rate FiO2 02/05/17 12:00 99.4 64 20 120/72 100 Room Air 02/05/17 09:24 97.9 92 18 125/65 99 Physical Exam Const: No apparent distress, well-developed, well-nourished Head: Atraumatic Eyes: Normal Conjunctiva. Extraocular movements intact. ENT: Normal External Ears, Nose and Mouth. Neck: Full range of motion. ~ No meningismus. Tracheostomy in place and plugged. Resp: Clear to auscultation bilaterally Cardio: Regular rate and rhythm, no murmurs Abd: Soft, non tender, non distended. Normal bowel sounds. Well healed midline surgical excision scar. Skin: No petechiae or rashes Back: No midline tenderness. NO CVA tenderness Ext: No cyanosis, or edema Neur: Awake and alert, oriented 4. Cranial nerves intact. No facial droop. Normal strength and sensation in all extremities. Coordination with finger to nose normal. Psych: Normal Mood and Affect Result Diagram: 02/05/1793902/05/17 0940 Results 24 hrs Laboratory Tests Test 02/05/17 09:40 02/05/17 10:30 White Blood Count 3.810^3/ul Red Blood Count 4.0310^6/ul Hemoglobin 12.1g/dl Hematocrit 35.2% Mean Corpuscular Volume 87.3fl Mean Corpuscular Hemoglobin 30.0pg Mean Corpuscular Hemoglobin Concent 34.4g/dl Red Cell Distribution Width 12.8% Platelet Count 62025^3/UL Mean Platelet Volume 9.7fl Neutrophils % 52.8% Lymphocytes % 38.9% Monocytes % 5.2% Eosinophils % 2.3% Basophils % 0.5% Nucleated Red Blood Cells % 0.0/100WBC Neutrophils # 2.010^3/ul Lymphocytes # 1.510^3/ul Monocytes # 0.210^3/ul Eosinophils # 0.110^3/ul Basophils # 0.010^3/ul Nucleated Red Blood Cells # 0.010^3/ul Sodium Level 143mmol/L Potassium Level 3.9mmol/L Chloride Level 108mmol/L Carbon Dioxide Level 29mmol/L Anion Gap 10 Blood Urea Nitrogen 17mg/dl Creatinine 0.66mg/dl Glucose Level 80mg/dl Calcium Level 8.9mg/dl Total Bilirubin 0.3mg/dl Direct Bilirubin 0.00mg/dl Indirect Bilirubin 0.3mg/dl Aspartate Amino Transf (AST/SGOT) 27IU/L Alanine Aminotransferase (ALT/SGPT) 42IU/L Alkaline Phosphatase 60IU/L Total Protein 7.0g/dl Albumin 3.5g/dl Globulin 3.50g/dl Albumin/Globulin Ratio 1.00 Lipase 37U/L Urine Color YELLOW Urine Clarity CLEAR Urine pH 7.0 Urine Specific [place] 1.015 Urine Ketones NEGATIVEmg/dL Urine Nitrite NEGATIVEmg/dL Urine Bilirubin NEGATIVEmg/dL Urine Urobilinogen NEGATIVEmg/dL Urine Leukocyte Esterase NEGATIVELeu/ul Urine Hemoglobin NEGATIVEmg/dL Urine Glucose NEGATIVEmg/dL Urine Total Protein NEGATIVEmg/dl Current Medications Medications (Trade) Dose Ordered Sig/Alejandro Route PRN Reason Start Time Stop Time Status Last Admin Dose Admin Sodium Chloride 500 ml @ 500 mls/hr Q1H STAT IV 02/05/17 09:33 02/05/17 10:32 DC 02/05/17 10:05 Ondansetron HCl/ Dextrose (Zofran Inj/D5W) 54 ml @ 200 mls/hr ONCE STAT IV 02/05/17 09:33 02/05/17 09:58 DC Ketorolac Tromethamine (Toradol) 15 mg ONCE STAT IV 02/05/17 09:33 02/05/17 09:34 DC 02/05/17 10:05 Ondansetron HCl (Zofran Inj) 4 mg ONCE STAT IV 02/05/17 09:57 02/05/17 09:58 DC 02/05/17 10:05 Iohexol 150 ml 150 ml STK-MED ONCE .ROUTE 02/05/17 11:57 02/05/17 11:58 DC Sodium Chloride (NS) 100 ml @ ud STK-MED ONCE .ROUTE 02/05/17 11:57 02/05/17 11:58 DC Procedures/MDM MDM Patient's presentation warrants further investigation. His differential is wide given his significant chronic diseases, including but not limited to SBO, infection, kidney stones, cancer metastases, bowel perforation. I have low suspicion for AAA. Patient does not have findings of a UTI. LABS The patient's blood work was obtained and reviewed. The patient is leukopenic but not neutropenic. The patient is afebrile, and I do not suspect a systemic infection. The patient is mildly anemic today. These have been his baseline given past studies. The patient's platelet count is unremarkable. The patient' s CMP shows no signs of metabolic or electrolyte abnormality. The patient has normal renal and hepatic function testing. Lipase is unremarkable. UA is unremarkable. IMAGING CT abd/pelvis with contrast 1. No gross renal/ureteric calculi. No evidence of obstruction or hydronephrosis. 2. No evidence of bowel obstruction. Stool and air noted large bowel suggestive of constipation. The appendix is not clearly identified, however no inflammatory changes within the right lower quadrant. 3. The gallbladder is not visualized. Correlate with history of prior cholecystectomy. 4. Small amount nonspecific free fluid within the pelvis, but is abnormal within a male. This was seen on prior CT scan of the October 18, 2016. The bladder otherwise appears to within normal limits. 5. Moderate size hiatal hernia. Electronically viewed and signed by Physician Rose on 02/05/2017 12:57 TREATMENT/DISPOSITION The patient's presentation revealed chronic changes but nothing acute. The patient was reassured and would like to go home. He reports that he is moving to [place] next week and really just wanted to make sure that everything was OK. The patient understands that he has cancer and chronic changes such as nonspecific fluid in his abdomen that should be followed up on by his doctor, either here or in [place]. The patient was given IV fluids, Toradol and zofran with some improvement of his symptoms. The patient is stable for discharge. He will be given precautions with which to return to the emergency department. The patient will follow-up in the next few days. Departure Diagnosis: Primary Impression: Flank pain Additional Impression: Nausea & vomiting Vomiting type: unspecified Vomiting Intractability: non-intractable Qualified Code: R11.2 - Non-intractable vomiting with nausea, unspecified vomiting type Condition: LILIBETH Liao MD Feb 05, 2017 09:57
[2017-02-05 09:58] LABS: BASOPHILS % 0.5 % (0.0-2.0); EOSINOPHILS # 0.1 10^3/ul (0.0-0.5); EOSINOPHILS % 2.3 % (0.0-7.0); HEMATOCRIT 35.2 % (42.0-52.0); HEMOGLOBIN 12.1 g/dl (14.0-18.0); LYMPHOCYTES # 1.5 10^3/ul (0.8-2.9); LYMPHOCYTES % 38.9 % (15.0-51.0); MEAN CORPUSCULAR HGB CONC 34.4 g/dl (32.0-37.0); MEAN CORPUSCULAR VOLUME 87.3 fl (82.0-101.0); MEAN PLATELET VOLUME 9.7 fl (7.4-10.4); MONOCYTE # 0.2 10^3/ul (0.3-0.9); MONOCYTES % 5.2 % (0.0-11.0); NEUTROPHILS % 52.8 % (39.0-77.0); PLATELET COUNT 150 10^3/UL (140-415); RED BLOOD COUNT 4.03 10^6/ul (4.70-6.10); RED CELL DISTRIBUTION WIDTH 12.8 % (11.5-14.5); WHITE BLOOD COUNT 3.8 10^3/ul (4.8-10.8)
[2017-02-05 10:15] LABS: ALBUMIN 3.5 g/dl (3.3-4.9); BILIRUBIN,INDIRECT 0.3 mg/dl (0-1.1); BILIRUBIN,TOTAL 0.3 mg/dl (0.2-1.3); CALCIUM 8.9 mg/dl (8.4-10.2); CREATININE 0.66 mg/dl (0.61-1.24); POTASSIUM 3.9 mmol/L (3.5-5.1)
[2017-02-05 10:45] LABS: ADD UMIC NO; UR ASCORBIC ACID NEGATIVE (NEGATIVE); UR BILIRUBIN (Dip) NEGATIVE (NEGATIVE); UR BLOOD (Dip) NEGATIVE (NEGATIVE); UR CLARITY CLEAR (CLEAR); UR COLOR YELLOW (YELLOW); UR GLUCOSE (Dip) NEGATIVE (NEGATIVE); UR KETONES (Dip) NEGATIVE (NEGATIVE); UR LEUKOCYTE ESTERASE (Dip) NEGATIVE Leu/ul (NEGATIVE); UR NITRITE (Dip) NEGATIVE (NEGATIVE); UR SPECIFIC GRAVITY (Dip) 1.015 (1.003-1.030); UR TOTAL PROTEIN (Dip) NEGATIVE (NEGATIVE); UR UROBILINOGEN (Dip) NEGATIVE (NEGATIVE)
[2017-02-05] MEDS ORDERED: WARF2.5T PO (11:45)
[2017-02-05] MEDS ORDERED: WARF5TAB72 PO (11:45)
[2017-02-05] MEDS ORDERED: HYDR-902 PO (11:46)
[2017-02-05] MEDS ORDERED: IOHEXOL 300MG/ML 150 ML BTL ONE (11:57)
[2017-02-05] MEDS ORDERED: SOD CHLORIDE 0.9% 100 ML ONE (11:57)
[2017-02-05 12:00] VITALS: BP 120/72; PULSE 64; RESP 20; TEMP 99.4
--- NOTE | 2017-02-05 12:57 | RADRPT ---
PROCEDURE: CT ABDOMEN AND PELVIS WITH IV CONTRAST. CLINICAL INDICATION: Left flank pain TECHNIQUE: CT scan of the abdomen and pelvis without contrast was performed on a multidetector hig h-resolution CT scanner following the use of IV contrast. 90 cc Omnipaque-300 was administered. Izzy nal and sagittal reformatted images were obtained from the axial source images. Images were reviewed on a high-resolution PACS workstation. The total exam CTDI equals 3.9 mGy and the total exam DLP eq uals 201.5 mGy-cm. One or more of the following dose reduction techniques were used: Automated exposure control. Adjustment of the mA and/or kV according to patient size. Use of iterative reconstruction technique. COMPARISON: October 18, 2016 FINDINGS: CT abdomen: The lung bases are clear. The heart size is within limits. There is no significant pericardial effus ion. Hepatic morphology is within normal limits. No gross contour deforming masses. The gallbladder is no t visualized. No evidence of intrahepatic or extrahepatic biliary dilatation. The spleen and pancreas are within normal limits. Both adrenal glands are within normal limits. Both kidneys are in normal anatomic position. No evidence of obstruction or hydronephrosis. No gross renal/ureteric calculi. The visualized GI tract demonstrate normal caliber loops of small and large bowel. No evidence of shashank wel obstruction. The appendix is not clearly identified, however no inflammatory changes within the right lower quadrant. There is a moderate size hiatal hernia. The aorta demonstrates atherosclerotic calcifications. There is no significant retroperitoneal lymph adenopathy. CT pelvis: The bladder is within limits. Stool noted within rectosigmoid colon. The prostate gland is normal si ze. Small amount of free fluid within the pelvis. The visualized osseous structures, appears to within normal limits. IMPRESSION: 1. No gross renal/ureteric calculi. No evidence of obstruction or hydronephrosis. 2. No evidence of bowel obstruction. Stool and air noted large bowel suggestive of constipation. The appendix is not clearly identified, however no inflammatory changes within the right lower quadrant . 3. The gallbladder is not visualized. Correlate with history of prior cholecystectomy. 4. Small amount nonspecific free fluid within the pelvis, but is abnormal within a male. This was se en on prior CT scan of the October 18, 2016. The bladder otherwise appears to within normal limits. 5. Moderate size hiatal hernia. RPTAT: AAPP Kulwinder Sanchez Physician Date Time Electronically viewed and signed by Kulwinder Sanchez Physician on 02/05/2017 12:57 JL/
== END 2017-02-05 13:38 | disposition home or self-care (01) ==
LOC: E/R 09:21
DX: R10.9 Unspecified abdominal pain (principal); R11.2 Nausea with vomiting, unspecified; Z79.01 Long term (current) use of anticoagulants; Z87.891 Personal history of nicotine dependence
CPT/HCPCS: 36415; 74177; 80053; 81003; 83690; 85025; 96374; 96375; 99285; J1885; J2405; J7040; Q9967